=== PATIENT | female | born 1960 | race Caucasian/White ===

== ENCOUNTER → 2016-10-03 | Outpatient (CLI) | payer OTHER ==
[~2016-10-03] MED LIST: ACET-1256 PO; BENZ100C84 PO; CHOL1TAB42 PO; DIVA500T59 PO; DPKSR500; FLVHFAUNK; IBUP-1050 PO; LEVA45AE INH; PANT40TA PO; SCOP1DIS14 TD
--- NOTE | 2016-10-06 13:32 | MAMMOGRAPHY REPORT ---
BILATERAL DIGITAL SCREENING MAMMOGRAM TOMOSYNTHESIS WITH CAD: 10/03/2016 CLINICAL HISTORY: Routine screening. Patient has no complaints. TECHNIQUE: Breast tomosynthesis in addition to standard 2D mammography was performed. Current study was also evaluated with a Computer Aided Detection (CAD) system. COMPARISON: Comparison is made to exams dated: 10/02/2015 mammogram, 01/13/2013 mammogram, 12/23/2011 m ammogram, 10/28/2010 mammogram, 10/18/2009 mammogram - [facility], and 10/02/2008. BREAST COMPOSITION: There are scattered areas of fibroglandular density in both breasts. FINDINGS: No suspicious masses, calcifications, or areas of architectural distortion are noted in e ither breast. There has been no significant interval change compared to prior exams. IMPRESSION: ACR BI-RADS CATEGORY 1: NEGATIVE There is no mammographic evidence of malignancy. A 1 year screening mammogram is recommended. The p atient will receive written notification of the results. Approximately 10% of breast cancers are not detected with mammography. A negative mammographic repor t should not delay biopsy if a clinically suggestive mass is present. Betsy Wallace M.D. /:10/03/2016 15:52:37 Pulp Roller: Katelyn Sheffield [facility] letter sent: Normal 1/2 BI-RADS Code: ACR BI-RADS Category 1: Negative
== END | disposition home or self-care (01) ==
LOC: C.MAMM 15:08
PROVIDERS: ATTEND Family Medicine
DX: Z12.31 Encounter for screening mammogram for malignant neoplasm of breast (principal)

== ENCOUNTER 2017-06-26 09:22 | Inpatient (IN) | payer OTHER ==
[2017-06-02 14:46] VITALS: BMI 47.0
--- NOTE | 2017-06-02 15:20 | PAT Medication Instructions ---
Service Date Jun 02, 2017. Current Home Medication List Benzonatate (Tessalon Perles), 100 MG PO DAILY PRN for Cough Cholecalciferol (Vitamin D), 1 TAB PO QAM Divalproex Sodium (Depakote), 1 TAB PO TID Levalbuterol Tartrate (Levalbuterol Tartrate Hfa), 1 PUFF INH DAILY PRN for Shortness of Breath Pantoprazole (Protonix), 40 MG PO DAILY PRN for STOMACH Scopolamine (Transderm-Scop), 3 MG TD Q72H PRN for TRAVEL Medication Instructions For Your Scheduled Surgery Scopolamine (Transderm-Scop), 3 MG TD Q72H PRN for TRAVEL (continue as directed) - Hold the following medications the morning of surgery: Benzonatate (Tessalon Perles), 100 MG PO DAILY PRN for Cough Cholecalciferol (Vitamin D), 1 TAB PO QAM - Take the following medications the morning of surgery with a sip of water: Pantoprazole (Protonix), 40 MG PO DAILY PRN for STOMACH Levalbuterol Tartrate (Levalbuterol Tartrate Hfa), 1 PUFF INH DAILY PRN for Shortness of Breath (if needed) Divalproex Sodium (Depakote), 1 TAB PO TID - Take the following medications as scheduled the night before surgery: Pantoprazole (Protonix), 40 MG PO DAILY PRN for STOMACH (if needed) Levalbuterol Tartrate (Levalbuterol Tartrate Hfa), 1 PUFF INH DAILY PRN for Shortness of Breath (if needed) Divalproex Sodium (Depakote), 1 TAB PO TID Benzonatate (Tessalon Perles), 100 MG PO DAILY PRN for Cough (if needed) If you have any questions please call us at [phone] or [phone] or [phone]
[2017-06-02 15:25] LABS: URINE APPEARANCE CLEAR (CLEAR); URINE BILIRUBIN NEG (NEG); URINE COLOR DK YELLOW; URINE NITRITE NEG (NEG); URINE PH 5.5 (4.5-7.5); URINE SPECIFIC GRAVITY 1.027 (1.000-1.030); UROBILINOGEN NEG (NEG)
[2017-06-02 15:33] LABS: PROTHROMBIN TIME (PATIENT) 10.7 SECONDS (9.0-12.0)
[2017-06-02 15:39] LABS: MANUAL MICROSCOPIC REQUIRED? NO; REVIEW REQ? NO
--- NOTE | 2017-06-25 18:39 | HISTORY & PHYSICAL EXAMINATION ---
DATE OF ADMISSION: 06/26/2017 CHIEF COMPLAINT: Primary osteoarthritis of the right knee. HISTORY OF PRESENT ILLNESS: Keira is a pleasant 57-year-old female who has been complaining of chronic right knee pain. X-rays and clinical examination have been diagnostic for primary osteoarthritis of the right knee. After failing extensive conservative treatment including multiple injections and physical therapy, she elected to proceed with a right total knee arthroplasty. 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 By the end of the day, she has severe medial sided knee pain. She understands the risks, benefits, and alternatives to knee replacement and she elected to proceed. PAST MEDICAL HISTORY: Significant for mitral valve prolapse, history of seizures which is controlled and GERD. MEDICATIONS: Include Tessalon Perles 100 mg as needed, vitamin D 5000 units daily, Depakote 500 mg 3 times a day, levalbuterol 1 puff daily as needed, Protonix 40 mg daily as needed, and scopolamine patches every 72 hours as needed. PAST SURGICAL HISTORY: Significant for a right knee arthroscopy, left shoulder arthroscopy, right shoulder arthroscopy x3 and a left ankle dislocation. ALLERGIES: INCLUDE ALBUTEROL, SYNTHROID, MORPHINE, PSEUDOEPHEDRINE AND TRIPROLIDINE. SOCIAL HISTORY: Denies any tobacco, alcohol or IV drug use. REVIEW OF SYSTEMS: Complains of right knee pain. All other pertinent review of systems are negative. PHYSICAL EXAMINATION: GENERAL: She is awake, alert and oriented x3. She is in no apparent distress. She is very pleasant. HEENT: Pupils are equal, round and reactive to light. Extraocular motion intact. Oral mucosa is pink and moist. HEART: Regular rate per radial pulse. LUNGS: Kaylie symmetrically bilaterally with no audible breath sounds. ABDOMEN: Soft, nontender, and nondistended. MUSCULOSKELETAL: On physical examination of the right knee, she does have a slight varus deformity. She is able to ambulate independently. She does not have a limp. There is no swelling or effusion of her knee. She has good motion from 0-125 degrees, but she does have crepitus throughout. She has tenderness to palpation along the medial joint line and over the distal medial femoral condyle. IMAGING DATA: X-rays of the right knee do show advanced osteoarthritis with joint space narrowing and osteophyte formation, mostly involving the medial compartment. IMPRESSION: Medial compartmental arthritis of the right knee. PLAN: I will proceed with a Biomet Vanguard right total knee arthroplasty. Postoperatively, she will be started on aspirin for DVT prophylaxis and kept in the hospital for postoperative medical management. BART
[~2017-06-26] VITALS: Ht 182.9 cm; Wt 157.4 kg
[2017-06-26] VITALS (9 sets, daily range): BP systolic 100–126; BP diastolic 68–77; PULSE 67–91; TEMP 36.4–36.7; O2SAT 94–99; Ht 182.9 cm; Wt 157.4 kg
[2017-06-26] MEDS: TRANEXAMIC ACID INJ 1,000 MG in SODIUM CHLORIDE 0.9% 100ML 100 ML IV SCH ×2 (06:30→10:55)
--- NOTE | 2017-06-26 06:50 | History & Physical Bridge Note ---
H&P Re-Evaluation Bridge Note: I have examined the patient, reviewed the History & Physical and in the interval since the performance of the History & Physical I have noted the following changes of clinical significance: No changes noted
[~2017-06-26 09:22] MED LIST changes: -ACET-1256 PO; +ACETAMINOPHEN 500 MG TAB PO SCH; +BUPIVACAINE 0.25% 30 ML VIAL ONE; +BUPIVACAINE 0.5 % 5 MG/1 ML PF 10ML VIAL ONE; +CEFAZOLIN 3000MG IV PUSH 15 ML IV SCH; +DEXAMETHASONE SOD INJ 4 MG/ML VIAL ONE; -DPKSR500; +EpINEphrine INJ 1MG/ML AMP 1 MG/ML AMP ONE; +FAMOTIDINE 20 MG TAB PO SCH; -FLVHFAUNK; +GABAPENTIN 300 MG CAP PO SCH; -IBUP-1050 PO; +LACTATED RINGER'S 1000ML 1,000 ML IV SCH; +LACTATED RINGER'S 1000ML 500 ML IV ONE; +ROPIVACAINE 5MG/ML 30 ML 150 MG, BUPIVACAINE/EPINEPHR 0.5% MPF 30 ML, KETOROLAC TROMETH... INFIL SCH; +SCOP1.5D2 TD; -SCOP1DIS14 TD
[2017-06-26 10:23] LABS: PREG INTERNAL NEGATIVE QC NEG CLEAR BACKGROUND; PREG INTERNAL POSITIVE QC POS CONTROL LINE
[2017-06-26] MEDS ORDERED: ORTHO JOINT ANESTHETIC ONE (10:25)
[2017-06-26] MEDS ORDERED: BACITRACIN 50000 UNIT VIAL ONE (10:26)
[2017-06-26] MEDS ORDERED: MIDAZOLAM HCL 1 MG/ML 2ML VIAL ONE ×2 (10:30→11:42)
[2017-06-26] MEDS ORDERED: FENTANYL CITRATE INJ 50 MCG/1 ML 2 ML VIAL ONE (10:30)
[2017-06-26] MEDS ORDERED: PROPOFOL IV EMULSION 10 MG/ML 20 ML VIAL IV ONE (10:30)
[2017-06-26] MEDS ORDERED: PROMETHAZINE HCL INJ 6.25 MG in SODIUM CHLORIDE 0.9% 50ML 50 ML IV PRN (12:15)
[2017-06-26] MEDS ORDERED: ATROPINE SULFATE 0.1 MG/ML 5ML SYR IV PRN (12:15)
[2017-06-26] MEDS ORDERED: EpHEDrine SULFATE INJ 50 MG/ML AMP IV PRN (12:15)
[2017-06-26] MEDS ORDERED: FENTANYL CITRATE INJ 50 MCG/1 ML 2 ML VIAL IV PRN (12:15)
[2017-06-26] MEDS ORDERED: ONDANSETRON INJ 2 MG/ML 2 ML VIAL IV PRN ×2 (12:15→13:30)
--- NOTE | 2017-06-26 13:24 | [facility] Post Operative Brief Note ---
Immediate Operative Summary Operative Date Jun 26, 2017. Pre-Operative Diagnosis Medial compartmental arthritis of right knee Post-Operative Diagnosis Medial compartmental arthritis of right knee Procedure(s) Performed Right Total Knee Arthroplasty Surgeon Dr. Campos Senior Administrator Support Surgeon(s) DEXTER Bell Estimated Blood Loss 20ml Findings as above Specimens A) Right knee- bone & tissue Complication(s) None Disposition Recovery Room / PACU
[2017-06-26] MEDS ORDERED: BISACODYL 10 MG SUPP PR PRN (13:30)
[2017-06-26] MEDS ORDERED: HYDROmorphone INJ 1 MG/ML SYR IV PRN (13:30)
[2017-06-26] MEDS ORDERED: METOCLOPRAMIDE HCL INJ 5 MG/ML 2 ML VIAL IV PRN (13:30)
[2017-06-26] MEDS: KETOROLAC TROMETHAMINE 30 MG/ML VIAL IV. SCH ×3 (13:30→23:57)
[2017-06-26] MEDS ORDERED: SOD PHOSPHATE/SOD BIPHOSPHATE ENEMA 132 ML BTL PR PRN (13:30)
[2017-06-26] MEDS ORDERED: LEValbuterol HFA 15GM INHALER INH PRN (13:30)
[2017-06-26] MEDS ORDERED: MAGNESIUM HYDROXIDE SUSP 30 ML UDC PO PRN (13:30)
[2017-06-26] MEDS ORDERED: CEFAZOLIN IV 3,000 MG in DEXTROSE 5% 50ML 50 ML IV SCH (13:30)
[2017-06-26] MEDS ORDERED: SILVER SULFADIAZINE 1% CR 50 GM JAR EXT PRN (13:30)
--- NOTE | 2017-06-26 14:12 | Anesthesiology Progress Note ---
Anesthesia Post Op Note Date & Time Jun 26, 2017 at 14:12 Vital Signs Pain Intensity: 0 Vital Signs Past 12 Hours Date Time Temp Pulse Resp B/P (MAP) Pulse Ox O2 Delivery O2 Flow Rate FiO2 06/26/17 14:05 74 19 112/67 97 Nasal Cannula 2 06/26/17 13:55 68 17 106/67 96 Nasal Cannula 2 06/26/17 13:49 36.4 81 20 106/62 97 Nasal Cannula 2 06/26/17 10:06 36.7 78 20 126/74 97 Room Air Notes Mental Status: alert / awake / arousable, participated in evaluation Pt Amnestic to Procedure: Yes Nausea / Vomiting: adequately controlled Pain: adequately controlled Airway Patency, RR, SpO2: stable & adequate BP & HR: stable & adequate Hydration State: stable & adequate Neuraxial Anesthesia: was administered, sensory block is resolving Anesthetic Complications: no major complications apparent
--- NOTE | 2017-06-26 14:33 | DIAGNOSTIC IMAGING REPORT ---
R KNEE 1 OR 2 VIEWS ROUTINE CLINICAL HISTORY: Osteoarthritis. Postop study COMPARISON: None. DISCUSSION: There are postsurgical changes of a total right knee arthroplasty and patellar resurfacing. Overlying skin jelani are evident. There is air in the soft tissues consistent with recent surgery. There is an overlying surgical drain. Femoral tibial components appear well seated. IMPRESSION: Postsurgical changes of a total right knee arthroplasty. Electronically signed by: Jose Perez M.D. 06/26/2017 2:32 PM Dictated Date/Time: 06/26/2017 2:31 PM
[2017-06-26] MEDS: SODIUM CHLORIDE 0.9% 1000ML 1,000 ML IV SCH ×2 (16:49→23:57)
[2017-06-26] MEDS: OXYCODONE HCL IR 5 MG TAB (IMMEDIATE RELEASE) PO PRN (16:49)
[2017-06-26] MEDS: DIVALPROEX SODIUM 500 MG DELAY RELEASE TAB PO SCH ×2 (18:11→21:57)
[2017-06-26] MEDS: CEFAZOLIN IV 3,000 MG in SYRINGE 0 ML IV SCH (20:05)
[2017-06-26] MEDS: DOCUSATE SODIUM 100 MG CAP PO SCH (21:57)
[2017-06-26] MEDS: ACETAMINOPHEN 500 MG TAB PO SCH (21:58)
[2017-06-26] MEDS: SENNA 8.6 MG TAB PO SCH (21:58)
[2017-06-26] MEDS: ASPIRIN 325 MG ECTAB PO SCH (21:58)
[2017-06-27] VITALS (7 sets, daily range): BP systolic 95–143; BP diastolic 64–85; PULSE 68–87; TEMP 36.4–36.9; O2SAT 93–99
[2017-06-27] MEDS: CEFAZOLIN IV 3,000 MG in SYRINGE 0 ML IV SCH (04:48)
[2017-06-27] MEDS: OXYCODONE HCL IR 5 MG TAB (IMMEDIATE RELEASE) PO PRN ×2 (04:49→17:31)
[2017-06-27] MEDS: ACETAMINOPHEN 500 MG TAB PO SCH ×3 (05:54→22:01)
[2017-06-27 06:06] LABS: HEMATOCRIT 33.9 % (37-47); MEAN CELL VOLUME 86.5 fL (80-100); MEAN CORPUSCULAR HEMOGLOBIN 27.3 pg (25-34); MEAN CORPUSCULAR HGB CONC 31.6 g/dl (32-36); MEAN PLATELET VOLUME 10.3 fL (7.4-10.4); PLATELET COUNT 193 K/uL (130-400); RED BLOOD COUNT 3.92 M/uL (4.2-5.4)
[2017-06-27 06:50] LABS: BUN/CREATININE RATIO 28.2 (10-20); CALCIUM 8.5 mg/dl (8.5-10.1); CREATININE 0.66 mg/dl (0.60-1.20); POTASSIUM 4.3 mmol/L (3.5-5.1)
--- NOTE | 2017-06-27 07:35 | Discharge Instructions ---
Discharge Instructions Date of Service Jun 27, 2017. Admission Reason for Admission: Osteoarthritis Of Knee Discharge Discharge Diagnosis / Problem: Right Total Knee Discharge Goals Goal(s): Decrease discomfort, Improve function Activity Recommendations Activity Limitations: as noted below . Instructions / Follow-Up Instructions / Follow-Up Activity and Therapy Recommendations: * If you are using [facility] then Physical Therapy will be provided until they feel you are ready to start Outpatient Physical Therapy. If you are not using a Home Health agency then Outpatient Physical Therapy should start about 3-5 days from your day of surgery. Therapy will last about 6-10 weeks * It is important not to put a pillow under your knee when you are relaxing or sleeping. It is just as important to make sure you are getting your knee perfectly straight as it is to regain your knee bend. * You were shown a series of exercises in the hospital. Do these exercises three times each day including the exercises you were shown in physical therapy. * Get up and walk several times each day. For the first four weeks, try not to stand or walk for more than one hour at a time. If you do stand or walk for more than one hour, you will not hurt anything, but your leg will likely swell. * As you feel comfortable, you may change from the walker or crutches to a cane and then to independent walking. Medications: * Narcotic You will likely be sent home from the hospital with a prescription for the narcotic pain medication that worked best throughout your stay. * Aspirin Most patients will be required to take Aspirin 325mg twice a day for 6 weeks after surgery. This is obtained [id number] and a prescription is not necessary. * Other medications may be prescribed for specific circumstances. If you have any questions, please call the office at . * Resume previous home medications unless otherwise instructed TEDs/Elastic Stockings: The white elastic stockings help limit swelling and prevent blood clots from forming in your legs.~ The more you wear them, the more they work. Wear them for six weeks. Showering: You may shower 5 days from the day of surgery. Let the soapy shower water run over the jelani. Do not scrub or soak the incision. Things To Watch For: * Drainage from the incision site that occurs more than one week after your surgery. * Increased redness at the incision site. * Fever above 102 degrees Fahrenheit. * Unusual chest pain or shortness of breath. * Call [facility] at with any of the above problems Follow-Up Visit: Follow-up with Dr. Campos 2-3 weeks after your day of surgery. An appointment was probably scheduled when you signed-up for surgery in the office. If you have any questions call Office Instructions: More detailed instructions as well as Frequently Asked Questions were provided in a folder by our office when you signed-up for surgery. Please review these instructions when you get home. If you have any further questions or concerns, please feel free to call the office at [phone] Current Hospital Diet Patient's current hospital diet: Regular Diet Discharge Diet Recommended Diet: Regular Diet Procedures Procedures Performed: Right Total Knee Arthroplasty Pending Studies Studies pending at discharge: no Medical Emergencies . Who to Call and When: Medical Emergencies: If at any time you feel your situation is an emergency, please call [phone] immediately. . Non-Emergent Contact Non-Emergency issues call your: Surgeon Call Non-Emergent contact if: wound has increased drainage, wound has increased redness . "Provider Documentation" section prepared by Noman Campos. . VTE Core Measure Inpt VTE Proph given/why not?: Other Anticoagulation (Aspirin 325 twice a day for 6 weeks)
--- NOTE | 2017-06-27 07:49 | OPERATIVE REPORT ---
DATE OF OPERATION: 06/26/2017 PREOPERATIVE DIAGNOSIS: Primary osteoarthritis of the right knee. PROCEDURE: Right total knee arthroplasty. SURGEON: Noman Campos DO. CRANE RIGGER: Eitan Antonio PA-C, whose assistance was necessary for positioning of the leg and helping with retraction of instrumentation. ANESTHESIA: Spinal with a right adductor nerve block. COMPLICATIONS: None. CONDITION: Stable to PACU. INDICATIONS: Keira is a pleasant 57-year-old female who presented to my office with chronic right knee pain. I did a knee arthroscopy on her in the past and it showed significant arthritis. X-rays showed worsening arthritis in the office and after failing years of conservative treatment, she elected to proceed with a right total knee arthroplasty. OPERATION AND FINDINGS: On 06/26/2017, she arrived at [facility] for the above procedure. She was seen in the preoperative holding area and the operative extremity was identified and signed. She was given a preoperative antibiotic, a spinal anesthetic and a right adductor nerve block. She was taken back to the operating room, laid on the table in supine position and put under basic sedation. The right knee was then prepped and draped in sterile fashion. Time-out was done and the patient and operative extremity was properly identified. A midline incision was made directly over the patella. Dissection was taken down through the fascia and a medial parapatellar arthrotomy was used. The fat pad was left intact. The medial retinaculum was released and the knee was flexed. ACL, PCL and meniscus were removed. A drill was sent down the center of the femoral canal, followed by an intramedullary bang. Off that bang, a distal femoral cutting block was placed and 12 mm was resected off the distal femur at 5 degrees of valgus. A posterior referencing guide was used and the femur measured long term between a 75 and an 80. I decided to go with the smaller 75 femur. Two drill holes were placed in 3 degrees of external rotation and a 4-in-1 cutting block was impacted into place. Anterior, posterior and chamfer cuts were then made. Box guide was then impacted into place and the box was resected for the posterior stabilizing component. The proximal tibia was then exposed. A drill was sent down the center of the tibial canal followed by an intramedullary bang. Off that bang, a proximal tibial resection guide was placed and 2 mm was resected off the low medial side. The tibia measured to be a size 79. The tibial plate was placed in appropriate rotation and then it was punched. Trial components were placed as well was a size 10 PS Plus poly. The patella was then everted and 8 mm was resected off the posterior aspect of the patella. The patella measured to be a size 31 and 3 peg holes were drilled. A trial patella was used. The knee was brought through a full range of motion and felt to be stable. All trial components were then removed. The surrounding soft tissues were injected with 100 mL of orthopedic pain control cocktail. The final implants were cemented into place with Palacos-G cement. Once cement had hardened, a size 10 PS Plus poly seemed to be the best fit. I went with a PS Plus because of her size and weight. The knee was brought through a full range of motion and felt to be stable. The knee was then irrigated with 3 liters of normal saline solution with bacitracin. Two drains were placed. The extensor mechanism was closed with #2 FiberWire suture in the superior medial aspect as well as #1 Vicryl, both proximally and distally. The skin was closed with 2-0 Vicryl, 3-0 V-Loc suture and jelani. She was then placed in a soft compressive dressing and taken to the postanesthesia care unit in stable condition. She tolerated the procedure well. IMPLANTS USED: I used a Biomet Vanguard right total knee arthroplasty system with a size 75 femur, 79 tibia, a 31 x 8 patella and a size 10 PS Plus poly. I attest to the content of the Intraoperative Record and any orders documented therein. Any exception s are noted below.
--- NOTE | 2017-06-27 08:03 | PROGRESS NOTE ---
DATE: 06/27/2017 CHIEF COMPLAINT: Status post right total knee arthroplasty postop day #1. PROGRESS: Keira was seen and examined at bedside today. Overall, she is doing very well. She is not having much pain in the knee. She feels good. She has been up and ambulating on it. She was able to get some sleep last night, has no complaints. PHYSICAL EXAMINATION: VITAL SIGNS: All stable on room air and she is voiding on her own. RIGHT KNEE: The dressing is clean and dry and the drain is to suction. Her knee is out in full extension. She has active dorsiflexion and plantarflexion of her right ankle and sensation is intact throughout. LABORATORY DATA: She has an H&H today of 10.7 and 33.9. Her glucose is 137. X-rays postoperatively of the left knee showed the prosthesis to be in anatomical alignment without any evidence of fracture, dislocation or loosening. There is a little notching of the distal femur. IMPRESSION: Status post left total knee arthroplasty postop day #1. PLAN: At this point, she is doing well and happy with her progress. She did not have any pain in the knee. She can be up and ambulating today with physical therapy. Will continue aspirin 325 mg twice a day for DVT prophylaxis. We are expecting her to be discharged tomorrow with [facility] home health.
[2017-06-27] MEDS: SODIUM CHLORIDE 0.9% 1000ML 1,000 ML IV SCH ×2 (08:51→09:37)
[2017-06-27] MEDS: KETOROLAC TROMETHAMINE 30 MG/ML VIAL IV. SCH ×4 (08:53→19:23)
[2017-06-27] MEDS: DOCUSATE SODIUM 100 MG CAP PO SCH ×2 (08:54→21:59)
[2017-06-27] MEDS: MULTIVITAMIN TAB PO SCH (08:54)
[2017-06-27] MEDS: CHOLECALCIFEROL 1000 INTER.UNIT TAB PO SCH (08:54)
[2017-06-27] MEDS: DIVALPROEX SODIUM 500 MG DELAY RELEASE TAB PO SCH ×3 (08:55→21:59)
[2017-06-27] MEDS: PANTOprazole SOD 40 MG TAB PO SCH (08:55)
[2017-06-27] MEDS: ASPIRIN 325 MG ECTAB PO SCH ×2 (08:55→21:58)
[2017-06-27] MEDS: SENNA 8.6 MG TAB PO SCH (21:59)
[2017-06-28] MEDS: OXYCODONE HCL IR 5 MG TAB (IMMEDIATE RELEASE) PO PRN (00:03)
[2017-06-28] MEDS: KETOROLAC TROMETHAMINE 30 MG/ML VIAL IV. SCH ×2 (01:52→07:08)
[2017-06-28] MEDS: ACETAMINOPHEN 500 MG TAB PO SCH (05:39)
[2017-06-28 07:29] VITALS: BP 103/69; PULSE 65; TEMP 36.4; O2SAT 94
[2017-06-28 07:37] VITALS: BP 103/69; PULSE 65; TEMP 36.4; O2SAT 94
[2017-06-28] MEDS: DIVALPROEX SODIUM 500 MG DELAY RELEASE TAB PO SCH (08:50)
[2017-06-28] MEDS: MULTIVITAMIN TAB PO SCH (08:50)
[2017-06-28] MEDS: PANTOprazole SOD 40 MG TAB PO SCH (08:50)
[2017-06-28] MEDS: DOCUSATE SODIUM 100 MG CAP PO SCH (08:50)
[2017-06-28] MEDS: ASPIRIN 325 MG ECTAB PO SCH (08:50)
[2017-06-28] MEDS: CHOLECALCIFEROL 1000 INTER.UNIT TAB PO SCH (08:51)
[2017-06-28] MEDS ORDERED: RXC5 PO (09:43)
[2017-06-28] MEDS ORDERED: ASPEC325 PO (09:43)
--- NOTE | 2017-06-28 09:53 | PROGRESS NOTE ---
DATE: 06/28/2017 CHIEF COMPLAINT: Status post right total knee arthroplasty, postop day #2. PROGRESS: Keira was seen and examined at bedside today. Overall, she is doing very well. She worked well yesterday with physical therapy. Her pain is controlled. She has no complaints. PHYSICAL EXAMINATION: RIGHT LEG: The dressing has been changed and the drain has been pulled. She is lying with her leg in full extension. She has active dorsiflexion and plantarflexion of her right ankle. Sensation is intact throughout. IMPRESSION: Status post right total knee arthroplasty, postop day #2. PLAN: At this point, she is doing well and happy with her progress. She has been doing well with physical therapy. Her pain is controlled on oxycodone. We will discharge her to home later this morning.
[2017-06-28 11:10] VITALS: BP 107/72; PULSE 75; O2SAT 96
--- NOTE | 2017-06-28 22:17 | DISCHARGE SUMMARY ---
DISCHARGE DIAGNOSIS: Primary osteoarthritis of the right knee. PROCEDURE: Right total knee arthroplasty on 06/26/[address] Noman Campos. DISCHARGE INSTRUCTIONS: 1. Aspirin 325 mg twice a day for 6 weeks. 2. Oxycodone 5-10 mg every 4 hours as needed for pain. 3. Tessalon Perles 100 mg daily as needed. 4. Vitamin D 5000 units daily. 5. Depakote 1 tab 3 times a day. 6. Levalbuterol 1 puff as needed. 7. Protonix 40 mg daily. 8. Scopolamine patch as needed. 9. Follow up with Dr. Campos in 2 weeks. 10. Call the office of Dr. Campos with any questions or concerns. HOSPITAL COURSE: Keira is a pleasant 57-year-old female who presented to my office with chronic right knee pain. X-rays and clinical examination were diagnostic for progressing advanced osteoarthritis of the right knee. After failing extensive conservative treatment, she elected to proceed with a right total knee arthroplasty. On 06/26/2017, she arrived at [facility] and underwent a right knee replacement without complications. She had a spinal anesthetic and a right adductor nerve block. Postoperatively, she was started on aspirin 325 mg twice a day and discharged to general orthopedic floor. Her hospital course was uneventful. On postop day #1, her H&H was 10.7 and 33.9. Overall, her pain was controlled and she was ambulating well with physical therapy. On postop day #2, the dressing was changed, the drain was pulled. She worked well again with physical therapy and was subsequently discharged to home with the above instructions.
== END 2017-06-28 11:56 | disposition home or self-care (01) | DRG 470 ==
LOC: C.ACU 09:22 → C.3E 10:30 → ENRESERV 14:09
PROVIDERS: ADMIT Orthopaedic Surgery; ATTEND Orthopaedic Surgery
PROC: 0SRC0J9 Replacement of Right Knee Joint with Synthetic Substitute, Cemented, Open Approach (ICD-10-PCS; principal; 2017-06-26 11:15)
DX: M17.11 Unilateral primary osteoarthritis, right knee (principal); I34.1 Nonrheumatic mitral (valve) prolapse; K21.9 Gastro-esophageal reflux disease without esophagitis; R56.9 Unspecified convulsions

== ENCOUNTER → 2017-10-05 | Outpatient (CLI) | payer OTHER ==
[~2017-10-05] MED LIST changes: -ACETAMINOPHEN 500 MG TAB PO SCH; +ASPEC325 PO; -BUPIVACAINE 0.25% 30 ML VIAL ONE; -BUPIVACAINE 0.5 % 5 MG/1 ML PF 10ML VIAL ONE; -CEFAZOLIN 3000MG IV PUSH 15 ML IV SCH; -DEXAMETHASONE SOD INJ 4 MG/ML VIAL ONE; -EpINEphrine INJ 1MG/ML AMP 1 MG/ML AMP ONE; -FAMOTIDINE 20 MG TAB PO SCH; -GABAPENTIN 300 MG CAP PO SCH; -LACTATED RINGER'S 1000ML 1,000 ML IV SCH; -LACTATED RINGER'S 1000ML 500 ML IV ONE; -ROPIVACAINE 5MG/ML 30 ML 150 MG, BUPIVACAINE/EPINEPHR 0.5% MPF 30 ML, KETOROLAC TROMETH... INFIL SCH; +RXC5 PO
--- NOTE | 2017-10-06 13:29 | MAMMOGRAPHY REPORT ---
BILATERAL DIGITAL SCREENING MAMMOGRAM TOMOSYNTHESIS WITH CAD: 10/05/2017 CLINICAL HISTORY: Routine screening examination. TECHNIQUE: Breast tomosynthesis in addition to standard 2D mammography was performed. Current study was also evaluated with a Computer Aided Detection (CAD) system. COMPARISON: Comparison is made to exams dated: 10/03/2016 mammogram, 10/02/2015 mammogram, 12/23/2011 [facility] mogram, 10/28/2010 mammogram, 10/18/2009 mammogram - [facility], and 10/02/2008. BREAST COMPOSITION: There are scattered areas of fibroglandular density in both breasts. FINDINGS: The parenchymal pattern is unchanged. No developing mass, architectural distortion or clus ter of suspicious microcalcifications is seen in either breast. IMPRESSION: ACR BI-RADS CATEGORY 2: BENIGN There is no mammographic evidence of malignancy. A 1 year screening mammogram is recommended. The pa tient will receive written notification of the results. Approximately 10% of breast cancers are not detected with mammography. A negative mammographic report should not delay biopsy if a clinically suggestive mass is present. Rolanda Robles M.D. ay/:10/05/2017 16:01:21 Electronic Console Display Operator: Katelyn HADDAD(Kam)(Elan), [facility] letter sent: Normal 1/2 BI-RADS Code: ACR BI-RADS Category 2: Benign
== END | disposition home or self-care (01) ==
LOC: C.MAMM 15:19
PROVIDERS: ATTEND Family Medicine
DX: Z12.31 Encounter for screening mammogram for malignant neoplasm of breast (principal)

== ENCOUNTER 2018-09-17 09:53 | Inpatient (IN) | END 2018-09-20 14:15 | disposition home or self-care (01) | LOC: ED 09:53 → 2S 13:43 ==

== ENCOUNTER 2018-09-24 16:42 | Inpatient (IN) ==
[2018-09-24] MEDS ORDERED: dilTIAZem HCl 125 MG in DEXTROSE 5% 100 ML IV STA (18:03)
[2018-09-24] MEDS ORDERED: dilTIAZem HCl 5 MG/ML 5 ML VIAL IV STA (18:03)
[2018-09-24] MEDS ORDERED: SODIUM CHLORIDE 0.9% 500 ML IV SCH (18:15)
[2018-09-24 18:16] LABS: Basophils # (auto) 0.01 K/uL (0-0.2); Basophils % (auto) 0.1 %; Eosinophils # (auto) 0.05 K/uL (0-0.5); Eosinophils % (auto) 0.7 %; Hemoglobin 15.9 g/dL (12.0-16.0); Immature Granulocytes # (auto) 0.01 K/uL (0.00-0.02); Immature Granulocytes % (auto) 0.1 %; Lymphocytes # (auto) 2.96 K/uL (1.2-3.4); Lymphocytes % (auto) 43.5 %; Mean Corpuscular Hgb Conc 32.4 g/dL (32-36); Mean Corpuscular Volume 87.5 fL (80-100); Mean Platelet Volume 11.6 fL (7.4-10.4); Monocytes % (auto) 10.3 %; Neutrophils # (auto) 3.07 K/uL (1.4-6.5); Neutrophils % (auto) 45.3 %; Platelet Count 206 K/uL (130-400); RDW Coefficient of Variation 14.5 % (11.5-14.5); RDW Standard Deviation 46.5 fL (36.4-46.3)
[2018-09-24 18:25] LABS: INR 1.1 (0.9-1.1); Partial Thromboplastin Ratio 1.1; Partial Thromboplastin Time 28.4 Seconds (21.0-31.0); Prothrombin Time 11.4 Seconds (9.0-12.0)
[2018-09-24 18:43] LABS: Alanine Aminotransferase 30 U/L (12-78); Aspartate Aminotransferase 15 U/L (15-37); BUN Creatinine Ratio 23.6 (10-20); Blood Urea Nitrogen 19 mg/dl (7-18); Calcium 9.9 mg/dl (8.5-10.1); Carbon Dioxide 32 mmol/L (21-32); Chloride 104 mmol/L (98-107); Creatinine Clr Calc Pharmacy 117.6 ml/min; Est GFR (African American) 91.4; Est GFR (Non-African American) 78.8; Glucose 100 mg/dl (70-99); Magnesium 2.2 mg/dl (1.8-2.4); Potassium 3.6 mmol/L (3.5-5.1); Sodium 138 mmol/L (136-145)
[2018-09-24 18:54] LABS: Alkaline Phosphatase 108 U/L (45-117); Bilirubin,Total 0.4 mg/dl (0.2-1); Globulin 4.1 gm/dl (2.5-4.0); Total Protein 8.1 gm/dl (6.4-8.2); Troponin I < 0.015 ng/ml (0-0.045)
--- NOTE | 2018-09-24 19:03 | XRay Report ---
XR chest 1V portable CLINICAL HISTORY: 58 years-old Female presenting with weakness. TECHNIQUE: Portable upright AP view of the chest was obtained. COMPARISON: 09/21/2018 and CTA from 09/17/2018. FINDINGS: director of healthcare systems projects over the periphery of the left midlung degrading evaluation of this region. C ardiac silhouette mildly enlarged. Lungs and pleural spaces clear. Degenerative changes of the thorac ic spine. IMPRESSION: 1. Mild cardiomegaly. No other convincing evidence of acute cardiopulmonary disease. Electronically signed by: Clint Ferrara M.D. 09/24/2018 7:01 PM
--- NOTE | 2018-09-24 19:38 | Emergency Department Note ---
Entered by Andre Yates acting as a scribe for Miguel Macias MD History of Present Illness General Chief complaint: Arrhythmia/Palpitations Stated complaint: AFIB- CARDIAC HX Time Seen by Provider: 09/24/18 17:59 Source: patient History of Present Illness Onset (ago): hour(s) (prior to arrival) Location: chest (palpitations) Pain Consistency: + other (worsening) Maximum Pain Intensity: 0 Relieved By: + none Associated symptoms: + shortness of breath (exacerbated by the cold weather) and + other (tiredness) The patient is a 58 year old F who presents to the Emergency Room with complaints of worsening palpitations starting prior to arrival. She notes that she was discharged 4 days ago from the hospital with the diagnosis of atrial flutter. She states that she felt fine this morning. The patient states that she went to the gym today to exercise but before she could even start, they placed her on the monitor and her heart rate was about 140. She went to her doctor's office and was then referred her to the ED. She notes that she is currently on metoprolol and eliquis. She states that she is currently short of breath and feels tired. She adds that her shortness of breath is worse due to the cold weather. She notes that she has a history of bronchitis. Of note, she denies any chest pain. Home Medications Home Medications Medication Instructions Recorded Confirmed Type divalproex [Depakote] 500 mg PO TID 09/15/18 09/24/18 History levalbuterol tartrate [Xopenex HFA] 2 puff INHALATION UD PRN 09/15/18 09/24/18 History apixaban [Eliquis] 5 mg PO BID 30 Days #60 tab 09/20/18 09/24/18 Rx metoprolol tartrate 25 mg PO BID 30 Days #60 tab 09/20/18 09/24/18 Rx pantoprazole 40 mg PO QAM PRN 09/24/18 09/24/18 History Allergies Allergy/AdvReac Type Severity Reaction Status Date / Time pseudoephedrine Allergy Mild HYPERVENTIL Verified 09/17/18 11:24 ATE triprolidine Allergy Mild HYPERVENTIL Verified 09/17/18 11:24 ATE levofloxacin Allergy Unknown SWELLING, Verified 09/17/18 11:24 JOINT PAIN oxycodone Allergy Unknown HAD Verified 09/17/18 11:24 "WITHDRAWL" WHEN STOPPED adhesive AdvReac Mild Redness of Verified 09/20/18 06:57 Skin - Bandaids adhesive tape AdvReac Mild Redness of Verified 09/20/18 06:58 Skin albuterol AdvReac Unknown JITTER, Verified 09/17/18 11:24 RAPID HEART RATE morphine AdvReac Unknown SEE NOTES Verified 09/17/18 11:24 Past Med/Surg History Medical History Bronchitis (Chronic) Atrial flutter (Chronic) NEW ONSET- 08/2018; STARTED ON ELIQUIS/BETA CARON Acid reflux CONTROLLED Arthritis Asthma Diverticulitis REMOTE History of kidney stones History of seizures LAST SEIZURE 10+ YEARS AGO Morbid obesity Surgical History History of ankle surgery LEFT History of arthroscopy of left shoulder History of arthroscopy of right knee X3 History of arthroscopy of right shoulder X3 History of colonoscopy History of total knee arthroplasty RIGHT Family History Father Family history of bladder cancer Social History Current Living Situation: Family Current Living Situation Comment: Lives home with 16 y/o son Feels Safe at Home: Yes Safety Concerns: Feels Safe At This Time Smoking Status: Never smoker Hx Alcohol Use: Yes Alcohol type: beer and wine Alcohol Intake Frequency: holidays/special occasions only Hx Substance Use: No Beliefs That Will Affect Care: None Preferred Language: Micronesian Communication Ability: Effective Efficiency Miner Blasting Required: No Review of Systems See HPI for pertinent positives & negatives. and A total of 10 systems reviewed and were otherwise negative Physical Exam Vital Signs Vital Signs - 24 hr 09/24/18 17:40 09/24/18 18:01 09/24/18 18:02 Temperature 36.8 C Temperature Source Oral Sepsis Recent Fever Within 48 Hours No Sepsis New/Unexplained Change in Mental Status No Sepsis Action Taken by Nursing No Action Required Pulse Rate 142 H 137 H Pulse Rate [Left] 137 H Pulse Rhythm [Left] Pulse Strength [Left] Respiratory Rate 16 19 20 Respiratory Effort / Characteristics Non-Labored Spontaneous Respiratory Depth Normal Respiratory Pattern Regular Blood Pressure 142/93 H 137/101 H Blood Pressure [Left Arm] 137/101 H Blood Pressure Mean 109 113 Blood Pressure Mean [Left Arm] 113 Blood Pressure Position Sitting Blood Pressure Position [Left Arm] Pulse Oximetry 97 97 96 Oxygen Delivery Method Room Air Room Air 09/24/18 18:31 09/24/18 18:40 09/24/18 18:48 Temperature Temperature Source Sepsis Recent Fever Within 48 Hours Sepsis New/Unexplained Change in Mental Status Sepsis Action Taken by Nursing Pulse Rate 138 H 139 H Pulse Rate [Left] 132 H Pulse Rhythm [Left] Pulse Strength [Left] Respiratory Rate 20 14 20 Respiratory Effort / Characteristics Non-Labored Spontaneous Respiratory Depth Respiratory Pattern Blood Pressure Blood Pressure [Left Arm] 115/92 Blood Pressure Mean Blood Pressure Mean [Left Arm] 99 Blood Pressure Position Blood Pressure Position [Left Arm] Lying Pulse Oximetry 98 97 96 Oxygen Delivery Method Room Air 09/24/18 18:49 09/24/18 18:50 09/24/18 19:00 Temperature Temperature Source Sepsis Recent Fever Within 48 Hours Sepsis New/Unexplained Change in Mental Status Sepsis Action Taken by Nursing Pulse Rate 138 H 125 H 113 H Pulse Rate [Left] Pulse Rhythm [Left] Pulse Strength [Left] Respiratory Rate 16 15 30 H Respiratory Effort / Characteristics Respiratory Depth Respiratory Pattern Blood Pressure 115/92 Blood Pressure [Left Arm] Blood Pressure Mean 99 Blood Pressure Mean [Left Arm] Blood Pressure Position Blood Pressure Position [Left Arm] Pulse Oximetry 99 96 96 Oxygen Delivery Method 09/24/18 19:01 09/24/18 19:12 09/24/18 19:20 Temperature Temperature Source Sepsis Recent Fever Within 48 Hours Sepsis New/Unexplained Change in Mental Status Sepsis Action Taken by Nursing Pulse Rate 113 H 130 H 113 H Pulse Rate [Left] Pulse Rhythm [Left] Pulse Strength [Left] Respiratory Rate 27 H 21 22 Respiratory Effort / Characteristics Respiratory Depth Respiratory Pattern Blood Pressure 125/80 Blood Pressure [Left Arm] Blood Pressure Mean 95 Blood Pressure Mean [Left Arm] Blood Pressure Position Blood Pressure Position [Left Arm] Pulse Oximetry 96 97 95 Oxygen Delivery Method 09/24/18 19:30 09/24/18 19:31 09/24/18 19:40 Temperature Temperature Source Sepsis Recent Fever Within 48 Hours Sepsis New/Unexplained Change in Mental Status Sepsis Action Taken by Nursing Pulse Rate 125 H 127 H 115 H Pulse Rate [Left] Pulse Rhythm [Left] Pulse Strength [Left] Respiratory Rate 12 23 14 Respiratory Effort / Characteristics Respiratory Depth Respiratory Pattern Blood Pressure 133/81 Blood Pressure [Left Arm] Blood Pressure Mean 98 Blood Pressure Mean [Left Arm] Blood Pressure Position Blood Pressure Position [Left Arm] Pulse Oximetry 97 96 98 Oxygen Delivery Method 09/24/18 19:50 09/24/18 20:00 09/24/18 20:01 Temperature Temperature Source Sepsis Recent Fever Within 48 Hours Sepsis New/Unexplained Change in Mental Status Sepsis Action Taken by Nursing Pulse Rate 112 H 89 93 H Pulse Rate [Left] Pulse Rhythm [Left] Pulse Strength [Left] Respiratory Rate 28 H 16 20 Respiratory Effort / Characteristics Respiratory Depth Respiratory Pattern Blood Pressure 106/80 Blood Pressure [Left Arm] Blood Pressure Mean 88 Blood Pressure Mean [Left Arm] Blood Pressure Position Blood Pressure Position [Left Arm] Pulse Oximetry 95 98 95 Oxygen Delivery Method 09/24/18 20:10 09/24/18 20:20 09/24/18 20:30 Temperature Temperature Source Sepsis Recent Fever Within 48 Hours Sepsis New/Unexplained Change in Mental Status Sepsis Action Taken by Nursing Pulse Rate 105 H 99 H 119 H Pulse Rate [Left] Pulse Rhythm [Left] Pulse Strength [Left] Respiratory Rate 18 22 24 Respiratory Effort / Characteristics Respiratory Depth Respiratory Pattern Blood Pressure Blood Pressure [Left Arm] Blood Pressure Mean Blood Pressure Mean [Left Arm] Blood Pressure Position Blood Pressure Position [Left Arm] Pulse Oximetry 96 97 94 Oxygen Delivery Method 09/24/18 20:31 09/24/18 20:40 09/24/18 20:50 Temperature Temperature Source Sepsis Recent Fever Within 48 Hours Sepsis New/Unexplained Change in Mental Status Sepsis Action Taken by Nursing Pulse Rate 115 H 104 H 107 H Pulse Rate [Left] Pulse Rhythm [Left] Pulse Strength [Left] Respiratory Rate 17 19 20 Respiratory Effort / Characteristics Respiratory Depth Respiratory Pattern Blood Pressure 102/79 Blood Pressure [Left Arm] Blood Pressure Mean 86 Blood Pressure Mean [Left Arm] Blood Pressure Position Blood Pressure Position [Left Arm] Pulse Oximetry 94 95 93 Oxygen Delivery Method 09/24/18 21:00 09/24/18 21:01 09/24/18 21:10 Temperature Temperature Source Sepsis Recent Fever Within 48 Hours Sepsis New/Unexplained Change in Mental Status Sepsis Action Taken by Nursing Pulse Rate 94 H 101 H 104 H Pulse Rate [Left] Pulse Rhythm [Left] Pulse Strength [Left] Respiratory Rate 18 17 20 Respiratory Effort / Characteristics Respiratory Depth Respiratory Pattern Blood Pressure 102/65 Blood Pressure [Left Arm] Blood Pressure Mean 77 Blood Pressure Mean [Left Arm] Blood Pressure Position Blood Pressure Position [Left Arm] Pulse Oximetry 95 92 94 Oxygen Delivery Method 09/24/18 21:20 09/24/18 21:30 09/24/18 21:40 Temperature Temperature Source Sepsis Recent Fever Within 48 Hours Sepsis New/Unexplained Change in Mental Status Sepsis Action Taken by Nursing Pulse Rate 100 H 86 104 H Pulse Rate [Left] Pulse Rhythm [Left] Pulse Strength [Left] Respiratory Rate 26 H 17 25 H Respiratory Effort / Characteristics Respiratory Depth Respiratory Pattern Blood Pressure 121/84 Blood Pressure [Left Arm] Blood Pressure Mean 96 Blood Pressure Mean [Left Arm] Blood Pressure Position Blood Pressure Position [Left Arm] Pulse Oximetry 94 94 96 Oxygen Delivery Method 09/24/18 21:50 09/24/18 22:00 09/24/18 22:01 Temperature Temperature Source Sepsis Recent Fever Within 48 Hours Sepsis New/Unexplained Change in Mental Status Sepsis Action Taken by Nursing Pulse Rate 100 H 100 H 97 H Pulse Rate [Left] Pulse Rhythm [Left] Pulse Strength [Left] Respiratory Rate 23 18 20 Respiratory Effort / Characteristics Respiratory Depth Respiratory Pattern Blood Pressure 113/70 Blood Pressure [Left Arm] Blood Pressure Mean 84 Blood Pressure Mean [Left Arm] Blood Pressure Position Blood Pressure Position [Left Arm] Pulse Oximetry 94 95 92 Oxygen Delivery Method 09/24/18 22:10 09/24/18 22:35 09/24/18 22:46 Temperature 36.5 C Temperature Source Oral Sepsis Recent Fever Within 48 Hours Sepsis New/Unexplained Change in Mental Status Sepsis Action Taken by Nursing Pulse Rate 100 H 78 Pulse Rate [Left] 76 Pulse Rhythm [Left] Regular Pulse Strength [Left] Normal Respiratory Rate 25 H 16 Respiratory Effort / Characteristics Non-Labored Spontaneous Respiratory Depth Normal Respiratory Pattern Regular Blood Pressure Blood Pressure [Left Arm] 106/73 Blood Pressure Mean Blood Pressure Mean [Left Arm] 84 Blood Pressure Position Blood Pressure Position [Left Arm] Lying Pulse Oximetry 94 99 Oxygen Delivery Method Room Air 09/24/18 23:05 09/25/18 00:19 09/25/18 02:40 Temperature 36.4 C L 36.4 C L Temperature Source Oral Oral Sepsis Recent Fever Within 48 Hours Sepsis New/Unexplained Change in Mental Status Sepsis Action Taken by Nursing Pulse Rate Pulse Rate [Left] 71 63 56 L Pulse Rhythm [Left] Pulse Strength [Left] Respiratory Rate 18 16 Respiratory Effort / Characteristics Respiratory Depth Respiratory Pattern Blood Pressure Blood Pressure [Left Arm] 98/66 L 95/61 L Blood Pressure Mean Blood Pressure Mean [Left Arm] 76 72 Blood Pressure Position Blood Pressure Position [Left Arm] Pulse Oximetry 96 97 Oxygen Delivery Method 09/25/18 07:04 Temperature 36.6 C Temperature Source Oral Sepsis Recent Fever Within 48 Hours Sepsis New/Unexplained Change in Mental Status Sepsis Action Taken by Nursing Pulse Rate Pulse Rate [Left] 96 H Pulse Rhythm [Left] Pulse Strength [Left] Respiratory Rate 18 Respiratory Effort / Characteristics Respiratory Depth Respiratory Pattern Blood Pressure Blood Pressure [Left Arm] 92/64 L Blood Pressure Mean Blood Pressure Mean [Left Arm] 73 Blood Pressure Position Blood Pressure Position [Left Arm] Pulse Oximetry 96 Oxygen Delivery Method Room Air GENERAL: Patient is in no acute distress. HEENT: No acute trauma, normocephalic atraumatic, mucous membranes moist, no nasal congestion, no scleral icterus. NECK: No stridor, no adenopathy, no meningismus, trachea is midline. LUNGS: Clear to auscultation bilaterally, no wheeze, no rhonchi, breath sounds equal. HEART: tachycardic, no murmurs, regular rhythm ABDOMEN: Soft, nontender, bowel sounds positive, no hernias, no peritonitis. EXTREMITIES: No cyanosis, mild bilateral pedal edema, full range of motion of all the joints without pain or difficulty, no signs for acute trauma. NEUROLOGIC: Oriented x 3, no acute motor or sensory deficits, no focal weakness. SKIN: No rash, no jaundice, no diaphoresis. Course 1801: Past medical records reviewed. The patient was evaluated in room D3A, and a complete history and physical examination were performed. 7: [facility] He will evaluate the patient for further management. 193: I re-evaluated the patient and updated her on her test results. Consultations Consultation #1: [facility] He will evaluate the patient for further management. Time: 19:27 Administered Medications Apixaban (Eliquis) 5 mg PO BID ALTHEA Stop: 10/25/18 08:59 Last Admin: 09/25/18 08:04 Dose: 5 mg Divalproex Sodium (Depakote Delay Release) 500 mg PO TID [facility] Stop: 10/25/18 08:59 Last Admin: 09/25/18 08:03 Dose: 500 mg Diltiazem HCl 125 mg/ Dextrose 125 mls @ 5 mls/hr IV .Q24H ALTHEA; Protocol Stop: 10/24/18 22:44 Last Titration: 09/25/18 09:05 Dose: 0 mg/hr, 0 mls/hr Titration: 09/25/18 07:02 Dose: 5 mg/hr, 5 mls/hr Admin: 09/25/18 01:19 Dose: 5 mg/hr, 5 mls/hr Metoprolol Tartrate (Lopressor) 25 mg PO BID [facility] Stop: 10/24/18 22:44 Last Admin: 09/25/18 08:03 Dose: 25 mg Admin: 09/25/18 00:15 Dose: 25 mg Discontinued Medications Diltiazem HCl (Cardizem) 15 mg IV NOW STA Stop: 09/24/18 18:04 Last Admin: 09/24/18 18:39 Dose: 15 mg Diltiazem HCl 125 mg/ Dextrose 125 mls @ 0 mls/hr IV .Q0M STA; Protocol Stop: 09/24/18 18:04 Last Admin: 09/24/18 18:42 Dose: 5 mg/hr, 5 mls/hr Sodium Chloride (Nss) 500 mls @ 999 mls/hr IV .Q31M ALTHEA Stop: 09/24/18 18:45 Last Infusion: 09/24/18 19:42 Dose: 0 mls/hr Admin: 09/24/18 18:39 Dose: 999 mls/hr Medical Decision Making Differential Diagnosis Differential Diagnosis includes: atrial flutter, atrial fibrillation., SVT, electrolyte abnormality, anemia, cardiac ischemia, CHF, thyroid disorder Medical Records Attestation: I reviewed the patient's medical records. Home Medications Current Medication List: was personally reviewed by me Laboratory Data Attestation: I reviewed the patient's lab results. Result diagrams: 09/25/18 04:41 09/25/18 04:41 Lab Results 09/24/18 09/24/18 09/24/18 Range/Units 18:00 18:00 18:00 WBC 6.80 (4.8-10.8) K/uL RBC 5.60 H (4.2-5.4) M/uL Hgb 15.9 (12.0-16.0) g/dL Hct 49.0 H (37-47) % MCV 87.5 (80-100) fL MCH 28.4 (25-34) pg MCHC 32.4 (32-36) g/dL RDW Std Deviation 46.5 H (36.4-46.3) fL RDW Coeff of Artemio 14.5 (11.5-14.5) % Plt Count 206 (130-400) K/uL MPV 11.6 H (7.4-10.4) fL Immature Gran % (Auto) 0.1 % Neut % (Auto) 45.3 % Lymph % (Auto) 43.5 % Fergus % (Auto) 10.3 % Eos % (Auto) 0.7 % Baso % (Auto) 0.1 % Immature Gran # (Auto) 0.01 (0.00-0.02) K/uL Neut # (Auto) 3.07 (1.4-6.5) K/uL Lymph # (Auto) 2.96 (1.2-3.4) K/uL Fergus # (Auto) 0.70 H (0.11-0.59) K/uL Eos # (Auto) 0.05 (0-0.5) K/uL Baso # (Auto) 0.01 (0-0.2) K/uL PT 11.4 (9.0-12.0) Seconds INR 1.1 (0.9-1.1) APTT 28.4 (21.0-31.0) Seconds PTT Ratio 1.1 Sodium 138 (136-145) mmol/L Potassium 3.6 (3.5-5.1) mmol/L Chloride 104 (98-107) mmol/L Carbon Dioxide 32 (21-32) mmol/L Anion Gap 2.0 L (3-11) BUN 19 H (7-18) mg/dl Creatinine 0.83 (0.6-1.2) mg/dl Est Cr Clr Drug Dosing 117.6 ml/min Est GFR ( Amer) 91.4 Est GFR (Non-Af Amer) 78.8 BUN/Creatinine Ratio 23.6 H (10-20) Glucose 100 H (70-99) mg/dl Calcium 9.9 (8.5-10.1) mg/dl Magnesium 2.2 (1.8-2.4) mg/dl Total Bilirubin 0.4 (0.2-1) mg/dl AST 15 (15-37) U/L ALT 30 (12-78) U/L Alkaline Phosphatase 108 (45-117) U/L Troponin I < 0.015 (0-0.045) ng/ml Total Protein 8.1 (6.4-8.2) gm/dl Albumin 4.0 (3.4-5.0) gm/dl Globulin 4.1 H (2.5-4.0) gm/dl Albumin/Globulin Ratio 1.0 (0.9-2) TSH 4.630 H (0.300-4.500) uIu/ml 09/25/18 09/25/18 Range/Units 04:41 04:41 WBC 6.86 (4.8-10.8) K/uL RBC 4.86 (4.2-5.4) M/uL Hgb 13.4 (12.0-16.0) g/dL Hct 42.3 (37-47) % MCV 87.0 (80-100) fL MCH 27.6 (25-34) pg MCHC 31.7 L (32-36) g/dL RDW Std Deviation 46.5 H (36.4-46.3) fL RDW Coeff of Artemio 14.8 H (11.5-14.5) % Plt Count 182 (130-400) K/uL MPV 11.2 H (7.4-10.4) fL Immature Gran % (Auto) 0.1 % Neut % (Auto) 39.5 % Lymph % (Auto) 49.3 % Fergus % (Auto) 10.1 % Eos % (Auto) 0.9 % Baso % (Auto) 0.1 % Immature Gran # (Auto) 0.01 (0.00-0.02) K/uL Neut # (Auto) 2.71 (1.4-6.5) K/uL Lymph # (Auto) 3.38 (1.2-3.4) K/uL Fergus # (Auto) 0.69 H (0.11-0.59) K/uL Eos # (Auto) 0.06 (0-0.5) K/uL Baso # (Auto) 0.01 (0-0.2) K/uL PT (9.0-12.0) Seconds INR (0.9-1.1) APTT (21.0-31.0) Seconds PTT Ratio Sodium 140 (136-145) mmol/L Potassium 4.1 (3.5-5.1) mmol/L Chloride 107 (98-107) mmol/L Carbon Dioxide 31 (21-32) mmol/L Anion Gap 2.0 L (3-11) BUN 20 H (7-18) mg/dl Creatinine 0.74 (0.6-1.2) mg/dl Est Cr Clr Drug Dosing 133.2 ml/min Est GFR ( Amer) 105.0 Est GFR (Non-Af Amer) 90.6 BUN/Creatinine Ratio 27.6 H (10-20) Glucose 103 H (70-99) mg/dl Calcium 9.1 (8.5-10.1) mg/dl Magnesium 2.3 (1.8-2.4) mg/dl Total Bilirubin (0.2-1) mg/dl AST (15-37) U/L ALT (12-78) U/L Alkaline Phosphatase (45-117) U/L Troponin I (0-0.045) ng/ml Total Protein (6.4-8.2) gm/dl Albumin (3.4-5.0) gm/dl Globulin (2.5-4.0) gm/dl Albumin/Globulin Ratio (0.9-2) TSH 3.120 (0.300-4.500) uIu/ml Imaging Data Radiologist's Impression: Radiology results as stated below per my review and the radiologist's interpretation: XR chest 1V portable CLINICAL HISTORY: 58 years-old Female presenting with weakness. TECHNIQUE: Portable upright AP view of the chest was obtained. COMPARISON: 09/21/2018 and CTA from 09/17/2018. FINDINGS: associate engineer projects over the periphery of the left midlung degrading evaluation of this region. Cardiac silhouette mildly enlarged. Lungs and pleural spaces clear. Degenerative changes of the thoracic spine. IMPRESSION: 1. Mild cardiomegaly. No other convincing evidence of acute cardiopulmonary disease. Electronically signed by: Clint Ferrara M.D. 09/24/2018 7:01 PM ECG Data Attestation: I personally reviewed and interpreted this ECG as follows: Indication: palpitations Rate (beats per minute): 138 Rhythm: atrial flutter Findings: + other (diffuse nonspecific-ST change); no PVC and no ST elevation Blood Pressure Blood Pressure Findings: Normal blood pressure Blood Pressure Disposition: did not require urgent referral MDM Narrative There is no leukocytosis or worrisome anemia. No significant electrolyte abnormality, kidney failure or hepatitis. There is no coagulopathy. EKG reveals a rapid atrial flutter, no obvious acute ischemia. Cardiac enzyme testing x1 is not consistent with acute cardiac injury. Chest x-ray does not show mediastinal widening, CHF or pneumonia. TSH was very minimally elevated at 4.6. The patient was not in significant distress. She presents in atrial flutter. She had the same issue a very short time ago. She is taking her metoprolol and Eliquis as prescribed. Patient received a 500 cc saline bolus. She was placed on a diltiazem drip after a diltiazem IV bolus. Her heart rate is decreasing. The patient requires a hospital stay. She may need an ablation which was talked about with her before. She is in no condition for discharge. I did speak to the patient and case management. The on-call hospitalist was consulted. Impression & Plan Atrial flutter with rapid ventricular response Critical Care Time I have personally spent greater than 35 minutes of critical care time in the direct management of this patient. This includes bedside care, interpretation of diagnostic studies, and testing, discussion with consultants, patient, and family members, and other required patient management activities. This 35 minutes is in excess of all separately billable procedures. Critical Care Time: Yes Discharge Plan Visit Data *Final* Discharge Date/Time: 09/24/18 22:11 Chief Complaint: Arrhythmia/Palpitations Stated Complaint: AFIB- CARDIAC HX ED Provider: Miguel Macias Discharge Problem: Atrial flutter with rapid ventricular response Patient Disposition: Admitted As Inpatient Discharge Instructions Interventions: ED Discharge Assessment Last Done: 09/24/18 22:11 The scribe's documentation has been prepared under my direction and personally reviewed by me in its entirety. I confirm that the note above accurately reflects all work, treatment, procedures, and medical decision making performed by me.
[2018-09-24] MEDS ORDERED: dilTIAZem HCl 125 MG in DEXTROSE 5% 100 ML IV SCH (22:45)
[2018-09-24] MEDS ORDERED: PANTOprazole 40 MG TAB PO PRN (22:45)
[2018-09-24] MEDS ORDERED: LEVALBUTEROL TARTRATE 15 GM HFA.AER.AD INH PRN (22:45)
[2018-09-24] MEDS ORDERED: NITROGLYCERIN SL 0.4 MG/TAB TAB SL PRN (22:45)
[2018-09-24] MEDS ORDERED: ONDANSETRON INJ 2 MG/ML 2 ML VIAL IV PRN (22:45)
[2018-09-25] MEDS: METOPROLOL TARTRATE 25 MG TAB PO SCH ×3 (00:15→20:21)
--- NOTE | 2018-09-25 00:52 | History and Physical Report ---
DATE OF ADMISSION: 09/24/2018 CHIEF COMPLAINT: Rapid atrial flutter. HISTORY OF PRESENT ILLNESS: This 58-year-old female with past medical history significant for mild intermittent asthma, recently treated for bronchitis, still has mild cough. She was recently in the hospital and found to be in rapid atrial flutter. There is a plan for ablation, but patient converted spontaneously to sinus rhythm and discharged on Eliquis and metoprolol. History of obesity, reflux esophagitis, and history of epilepsy. Comes back with rapid atrial flutter. She does not feel any flutter. Denies any chest pain, no shortness of breath. Still has mild cough, no headache, no dizziness, no earaches, no runny nose, no sore throat, no difficulty swallowing. No nausea, no abdominal pain. Normal bowel and bladder movements. No blood in the urine. No blood in the stools. Her PCP has given her heart monitor and told to check before she works out. Before she went to gym, she checked and heart rate was in the 140s, so she went to PCP and advised to come to the ER. Currently, started on Cardizem dripin Er and heart rate in the 90s, resting comfortably. ALLERGIES: ACTIFIED, ALBUTEROL, CODEINE, LEVAQUIN, MORPHINE, AND PSEUDOEPHEDRINE. PAST MEDICAL HISTORY: As mentioned above. PAST SURGICAL HISTORY: Colonoscopy with biopsy, knee arthroscopy with meniscectomy and debridement, tonsillectomy, adenoidectomy, right rotator cuff repair. MEDICATIONS: Currently, the patient is on Eliquis 5 mg p.o. b.i.d., Toprol-XL 25 mg p.o. daily, Depakote 500 mg p.o. t.i.d., Xopenex 2 puffs every 4 hours p.r.n., Protonix 40 mg p.o. daily. FAMILY HISTORY: Mother has glaucoma, allergies, congenital anatomy of heart disorder, but is asymptomatic. Father has gastritis and diverticulitis. Great aunt has ovarian cancer. Maternal aunt has uterine cancer. SOCIAL HISTORY: . No smoking history. Alcohol rare. No drug use. REVIEW OF SYMPTOMS: As per HPI. Rest of review of symptoms negative. PHYSICAL EXAMINATION: GENERAL: The patient is obese, not in acute distress. VITAL SIGNS: Temperature 36.8, pulse when she came in was in the 140s and currently 90s, blood pressure 150/92, oxygen 96% room air. HEENT: No pallor, no icterus. Pupils equal, round, and reactive to light. NECK: No JVD, no neck masses, no carotid bruits. CARDIOVASCULAR: S1, S2 heard. Irregular rhythm. No murmurs. RESPIRATORY SYSTEM: Normal AP diameter. No accessory muscle use. No wheezing, no crackles. ABDOMEN: Soft, bowel sounds present. Nontender. No distention. CENTRAL NERVOUS SYSTEM: Cranial nerves II-XII grossly intact. Nonfocal. EXTREMITIES: No edema, no erythema. LABS: WBC 6.8, hemoglobin 15.9, hematocrit 49, platelets 206. PT 11.4, INR 1.1, APTT 28.4. Sodium 138, potassium 3.6, chloride 104, CO2 32, BUN 19, creatinine 0.8, serum glucose 100, calcium 9.9, magnesium 2.2, total bilirubin 0.4, AST 15, ALT 30, alkaline phosphatase is 108. Troponin I less than 0.015. TSH 4.6. Chest x-ray mild cardiomegaly, no acute findings seen. EKG: Atrial flutter with 2:1 block at a rate of 138. ASSESSMENT AND PLAN: This is a 58-year-old female who was recently diagnosed with rapid atrial flutter and converted to sinus rhythm at the time of discharge, comes back with rapid atrial flutter. 1. Rapid atrial flutter. The patient was recently discharged on Eliquis and metoprolol. At that time, there was plan for AV ablation, but was converted to sinus rhythm and was discharged home on above medications. Comes back with rapid atrial flutter. Currently, on Cardizem drip. Rate is under control. We will continue Cardizem drip. We will continue home Lopressor and Eliquis. Monitor on tele floor. We will keep n.p.o. after midnight and consult cardiology in morning. 2. History of asthma. Recently treated for bronchitis .on Xopenex pnr. Stable 3. History of epilepsy, on Depakote. 4. Obesity, needs sleep study as outpatient. 5. History of reflux esophagitis, on Protonix. 3. Deep venous thrombosis prophylaxis, currently on Eliquis. DISPOSITION: Admit to tele floor. Expect discharge home and follow with family doctor. Level 1 full code. MTDD
[2018-09-25 04:54] LABS: Basophils # (auto) 0.01 K/uL (0-0.2); Basophils % (auto) 0.1 %; Eosinophils # (auto) 0.06 K/uL (0-0.5); Eosinophils % (auto) 0.9 %; Hematocrit (blood only) 42.3 % (37-47); Hemoglobin 13.4 g/dL (12.0-16.0); Immature Granulocytes # (auto) 0.01 K/uL (0.00-0.02); Immature Granulocytes % (auto) 0.1 %; Lymphocytes # (auto) 3.38 K/uL (1.2-3.4); Lymphocytes % (auto) 49.3 %; Mean Corpuscular Hgb Conc 31.7 g/dL (32-36); Mean Platelet Volume 11.2 fL (7.4-10.4); Monocytes # (auto) 0.69 K/uL (0.11-0.59); Monocytes % (auto) 10.1 %; Neutrophils # (auto) 2.71 K/uL (1.4-6.5); Neutrophils % (auto) 39.5 %; Platelet Count 182 K/uL (130-400); RDW Coefficient of Variation 14.8 % (11.5-14.5); RDW Standard Deviation 46.5 fL (36.4-46.3); Red Blood Count 4.86 M/uL (4.2-5.4); White Blood Count 6.86 K/uL (4.8-10.8)
[2018-09-25 05:11] LABS: BUN Creatinine Ratio 27.6 (10-20); Calcium 9.1 mg/dl (8.5-10.1); Creatinine Clr Calc Pharmacy 133.2 ml/min; Est GFR (Non-African American) 90.6; Magnesium 2.3 mg/dl (1.8-2.4); Potassium 4.1 mmol/L (3.5-5.1)
[2018-09-25] MEDS: DIVALPROEX DELAY RELEASE 500 MG TAB PO SCH ×3 (08:03→20:21)
[2018-09-25] MEDS: APIXABAN 5 MG TABLET PO SCH ×2 (08:04→20:20)
--- NOTE | 2018-09-25 09:27 | Cardiology Consultation ---
Date of Consultation September 25, 2018 Assessment & Plan (1) Atrial flutter with rapid ventricular response: Patient presents with recurrent atrial flutter and rapid ventricular response. Minimal symptoms noted. She is properly anticoagulated with Eliquis. Currently sinus bradycardia in the 50s. Recommend discontinuation of intravenous diltiazem. Case discussed with electrophysiology. Plan for flutter ablation on 09/27/18. Risks of procedure previously discussed with patient. She is agreeable. P.m. dose of Eliquis will be held 09/26/18. (2) Seizure disorder: No medication changes at this time (3) Asthma: Stable without active wheeze. History of Present Illness Reason for Consultation: Atrial flutter Requesting Physician: Dr. England Attending Physician: Vasu Cervantes MD History of Present Illness 58-year-old female presented to the emergency department secondary to tachycardia. Patient recently admitted for new onset atrial flutter. She spontaneously converted to sinus rhythm during that hospitalization. Flutter ablation was contemplated however canceled at that time. Patient was tentatively scheduled for an outpatient 0 monitor to assess for recurrence. Her initial episode of atrial flutter occurred in the setting of upper respiratory tract infection/bronchitis. Patient returned to the gym yesterday to begin light exercise. Pulse rate per monitor at the gym was 130 bpm. She then was evaluated by her PCP who referred her to the emergency department. Patient again noted to be in atrial flutter with 2-1 conduction. She received intravenous diltiazem as well as metoprolol. Spontaneously converted to sinus rhythm last evening. Currently asymptomatic with a diltiazem infusion at 5 mg/h. Denies associated chest pain or shortness of breath. Minimally symptomatic during episodes of atrial flutter. No orthopnea, PND, lower extremity edema. Denies any cough, fever, chills, rhinorrhea, or other upper respiratory tract infection signs/symptoms. Allergies Allergy/AdvReac Type Severity Reaction Status Date / Time pseudoephedrine Allergy Mild HYPERVENTIL Verified 09/17/18 11:24 ATE triprolidine Allergy Mild HYPERVENTIL Verified 09/17/18 11:24 ATE levofloxacin Allergy Unknown SWELLING, Verified 09/17/18 11:24 JOINT PAIN oxycodone Allergy Unknown HAD Verified 09/17/18 11:24 "WITHDRAWL" WHEN STOPPED adhesive AdvReac Mild Redness of Verified 09/20/18 06:57 Skin - Bandaids adhesive tape AdvReac Mild Redness of Verified 09/20/18 06:58 Skin albuterol AdvReac Unknown JITTER, Verified 09/17/18 11:24 RAPID HEART RATE morphine AdvReac Unknown SEE NOTES Verified 09/17/18 11:24 Home Medications Home Medications Medication Instructions Recorded Confirmed Type divalproex [Depakote] 500 mg PO TID 09/15/18 09/24/18 History levalbuterol tartrate [Xopenex HFA] 2 puff INHALATION UD PRN 09/15/18 09/24/18 History apixaban [Eliquis] 5 mg PO BID 30 Days #60 tab 09/20/18 09/24/18 Rx metoprolol tartrate 25 mg PO BID 30 Days #60 tab 09/20/18 09/24/18 Rx pantoprazole 40 mg PO QAM PRN 09/24/18 09/24/18 History Patient History Medical History Bronchitis (Chronic) Atrial flutter (Chronic) NEW ONSET- 08/2018; STARTED ON ELIQUIS/BETA CARON Acid reflux CONTROLLED Arthritis Asthma Diverticulitis REMOTE History of kidney stones History of seizures LAST SEIZURE 10+ YEARS AGO Morbid obesity Surgical History History of ankle surgery LEFT History of arthroscopy of left shoulder History of arthroscopy of right knee X3 History of arthroscopy of right shoulder X3 History of colonoscopy History of total knee arthroplasty RIGHT Family History Father Family history of bladder cancer Social History Current Living Situation: Family Current Living Situation Comment: Lives home with 16 y/o son Feels Safe at Home: Yes Safety Concerns: Feels Safe At This Time Smoking Status: Never smoker Hx Alcohol Use: Yes Alcohol type: beer and wine Alcohol Intake Frequency: holidays/special occasions only Hx Substance Use: No Beliefs That Will Affect Care: None Communication Ability: Effective Review of Systems The pertinent positives noted per HPI, conference of 10 system review otherwise negative. Physical Exam 2 Vital Signs (Past 24 Hours): Last Vital Signs Temp 36.6 C 09/25/18 07:04 Pulse 96 H 09/25/18 07:04 Resp 18 09/25/18 07:04 BP 92/64 L 09/25/18 07:04 Pulse Ox 96 09/25/18 07:04 Physical Exam: General: NAD, AAO x3, well nourished. HEENT: Normocephalic. Atraumatic. Conjunctiva pink, no scleral icterus. Neck: No carotid bruits, the carotid upstrokes are brisk. No JVD. No HJR Heart: Regular normal S-1 and S-2 no S-3 or S-4 gallop. No murmurs or rub appreciated. PMI is not displaced. No RV heave. Lungs: Clear bilateral without rales , rhonchi, or wheeze. Abdomen: Normal bowel sounds. Soft. Nontender. No masses or organomegaly. No abdominal bruits. Extremities: No clubbing, cyanosis, or edema. Pulses: radial=2/4, Dorsalis pedis =2/4, posterior tibial=2/4. Neuro: Cranial nerves grossly intact. No focal motor deficit.
--- NOTE | 2018-09-25 18:41 | Hospitalist Progress Note ---
Date of Service September 25, 2018 Assessment & Plan (1) Atrial flutter with rapid ventricular response: Started on diltiazem drip. Converted to NSR. Seen in consultion by Cardiology. Diltiazem discontinued. Continue metoprolol. Continue anticoagulation with apixaban. Ablation recommended. (2) Asthma: Pulmonary status stable. (3) Seizure disorder: Stable. Continue divalproex. (4) DVT prophylaxis: Receiving apixaban for atrial flutter. Ambulate. (5) Discharge planning issues: Anticipated discharge to home. Family Medicine follow-up with Dr. Redman. Cardiology follow-up with [facility]. Subjective Recheck for atrial flutter and other problems. Pt seen in her room around 1820. Admitted last evening with recurrent atrial flutter. Placed on diltiazem drip. Converted to NSR during the night. No chest pain, palpitations, SOB, edema. No fever. No wheezing or SOB. No nausea, vomiting, diarrhea. Physical Exam 2 Vital Signs (Past 24 Hours): Last Vital Signs Temp 36.4 C L 09/25/18 15:11 Pulse 68 09/25/18 15:11 Resp 20 09/25/18 15:11 BP 100/65 09/25/18 15:11 Pulse Ox 99 09/25/18 15:11 Constitutional: no acute distress Respiratory: no respiratory distress Auscultation: lungs clear to auscultation bilaterally Cardiovascular: Rate/Rhythm: regular rate and regular rhythm Heart Sounds: no gallop, no murmur and no cardiac rub Vessels: no JVD Extremities: no calf tenderness and no edema Gastrointestinal (Abdomen): normal bowel sounds, soft, nontender, no hepatosplenomegaly Skin: no rashes, warm and dry Psychiatric: Orientation: alert and oriented x 3 Results & Data Laboratory Results Laboratory Results - last 24 hr 09/24/18 09/25/18 09/25/18 18:00 04:41 04:41 WBC 6.86 RBC 4.86 Hgb 13.4 Hct 42.3 MCV 87.0 MCH 27.6 MCHC 31.7 L RDW Std Deviation 46.5 H RDW Coeff of Artemio 14.8 H Plt Count 182 MPV 11.2 H Immature Gran % (Auto) 0.1 Neut % (Auto) 39.5 Lymph % (Auto) 49.3 Fannin % (Auto) 10.1 Eos % (Auto) 0.9 Baso % (Auto) 0.1 Immature Gran # (Auto) 0.01 Neut # (Auto) 2.71 Lymph # (Auto) 3.38 Fannin # (Auto) 0.69 H Eos # (Auto) 0.06 Baso # (Auto) 0.01 Sodium 138 140 Potassium 3.6 4.1 Chloride 104 107 Carbon Dioxide 32 31 Anion Gap 2.0 L 2.0 L BUN 19 H 20 H Creatinine 0.83 0.74 Est Cr Clr Drug Dosing 117.6 133.2 Est GFR ( Amer) 91.4 105.0 Est GFR (Non-Af Amer) 78.8 90.6 BUN/Creatinine Ratio 23.6 H 27.6 H Glucose 100 H 103 H Calcium 9.9 9.1 Magnesium 2.2 2.3 Total Bilirubin 0.4 AST 15 ALT 30 Alkaline Phosphatase 108 Troponin I < 0.015 Total Protein 8.1 Albumin 4.0 Globulin 4.1 H Albumin/Globulin Ratio 1.0 TSH 4.630 H 3.120 ECG Additional Comments: EKG performed at 0642 reviewed and demonstrated NSR at 60/min, incomplete RBBB, inverted T-waves I, aVL, V2-6.
[2018-09-26] MEDS ORDERED: SODIUM CHLORIDE 0.9% 500 ML IV SCH (05:30)
[2018-09-26] MEDS: SODIUM CHLORIDE 0.9% 1000ML 1,000 ML IV SCH ×2 (06:16→16:38)
[2018-09-26] MEDS: DIVALPROEX DELAY RELEASE 500 MG TAB PO SCH ×3 (07:53→20:54)
[2018-09-26] MEDS: APIXABAN 5 MG TABLET PO SCH (10:04)
[2018-09-26] MEDS: METOPROLOL TARTRATE 25 MG TAB PO SCH ×2 (10:04→20:57)
--- NOTE | 2018-09-26 15:56 | Cardiology Progress Note ---
Date of Service September 26, 2018 Assessment & Plan (1) Atrial flutter with rapid ventricular response: Scheduled for flutter ablation on 09/27/18. Risks of procedure previously discussed with patient. She is agreeable. P.m. dose of Eliquis will be held today. (2) Seizure disorder: No medication changes at this time (3) Asthma: Stable without active wheeze. Subjective Patient seen and examined at the bedside. Remains in Sinus rhythm. No CP, palpitations, or SOB. Tolerating diet and meds. Family present. Offers no complaints. Review of Systems All systems reviewed & are unremarkable except as noted in HPI & below Physical Exam 2 Vital Signs (Past 24 Hours): Last Vital Signs Temp 36.6 C 09/26/18 15:21 Pulse 57 L 09/26/18 15:21 Resp 18 09/26/18 15:21 BP 94/62 L 09/26/18 15:21 Pulse Ox 96 09/26/18 15:21 Physical Exam: General: NAD, AAO x3, well nourished. HEENT: Normocephalic. Atraumatic. Conjunctiva pink, no scleral icterus. Neck: No carotid bruits, the carotid upstrokes are brisk. No JVD. No HJR Heart: Regular normal S-1 and S-2 no S-3 or S-4 gallop. No murmurs or rub appreciated. PMI is not displaced. No RV heave. Lungs: Clear bilateral without rales , rhonchi, or wheeze. Abdomen: Normal bowel sounds. Soft. Nontender. No masses or organomegaly. No abdominal bruits. Extremities: No clubbing, cyanosis, or edema. Pulses: radial=2/4, Dorsalis pedis =2/4, posterior tibial=2/4. Neuro: Cranial nerves grossly intact. No focal motor deficit.
--- NOTE | 2018-09-26 16:37 | Hospitalist Progress Note ---
Date of Service September 26, 2018 Assessment & Plan (1) Atrial flutter with rapid ventricular response: Started on diltiazem drip. Converted to NSR. Seen in consultion by Cardiology. Diltiazem discontinued. Continue metoprolol. Continue anticoagulation with apixaban. Ablation scheduled for tomorrow. (2) Asthma: Pulmonary status stable. (3) Seizure disorder: Stable. Continue divalproex. (4) DVT prophylaxis: Receiving apixaban for atrial flutter. Ambulate. (5) Discharge planning issues: Anticipated discharge to home. Family Medicine follow-up with Dr. Redman. Cardiology follow-up with [facility]. Subjective Recheck for atrial flutter and other problems. Pt seen in her room around 1620. Remains in NSR. No chest pain, palpitations, SOB, edema. Scheduled for ablation tomorrow. No fever. No wheezing or SOB. No nausea, vomiting, diarrhea. Physical Exam 2 Vital Signs (Past 24 Hours): Last Vital Signs Temp 36.6 C 09/26/18 15:21 Pulse 57 L 09/26/18 15:21 Resp 18 09/26/18 15:21 BP 94/62 L 09/26/18 15:21 Pulse Ox 96 09/26/18 15:21 Constitutional: no acute distress Respiratory: no respiratory distress Auscultation: lungs clear to auscultation bilaterally Cardiovascular: Rate/Rhythm: regular rate and regular rhythm Heart Sounds: no gallop, no murmur and no cardiac rub Vessels: no JVD Extremities: no calf tenderness and no edema Gastrointestinal (Abdomen): normal bowel sounds, soft, nontender, no hepatosplenomegaly Skin: no rashes, warm and dry Psychiatric: Orientation: alert and oriented x 3
[2018-09-27] MEDS: METOPROLOL TARTRATE 25 MG TAB PO SCH ×2 (07:36→20:25)
[2018-09-27] MEDS: DIVALPROEX DELAY RELEASE 500 MG TAB PO SCH ×3 (07:36→20:26)
[2018-09-27] MEDS ORDERED: fentaNYL citrate 100 MCG/2 ML VIAL ONE ×3 (10:54→12:51)
[2018-09-27] MEDS ORDERED: MIDAZOLAM HCL 5 MG/ML 1 ML VIAL ONE ×2 (10:54→11:23)
--- NOTE | 2018-09-27 10:58 | Pre Anesthesia Assessment ---
Date of Service September 27, 2018 Pre Sedation Assessment Vital Signs Temp Pulse Pulse Resp BP Pulse Ox 09/27/18 07:30 36.4 C L 60 18 104/69 98 09/27/18 04:21 37 C 66 16 111/74 97 09/27/18 01:53 55 L 09/26/18 23:05 36.6 C 62 16 112/77 98 09/26/18 20:57 56 L 09/26/18 19:37 36.6 C 57 L 18 104/70 99 09/26/18 15:21 36.6 C 57 L 18 94/62 L 96 Cardiovascular + regular rate Respiratory + respiratory effort normal Pre-Sedation Airway Assessment Smoking Status: Never smoker Hx Sleep Apnea: No Hx Difficult Intubation: No Short, Thick Neck: No Thyromental Distance: > or= 3.5 Finger Breadths Oral Cavity: + WNL Mallampati Class: III ASA: ASA3 Procedure Planning Contraindications for Sedation: none Current Medications Reviewed: Yes Notes The planned sedation has been discussed with the patient. Informed Consent was obtained. I have identified the patient, determined the appropriateness of sedation and have assessed the patient immediately prior to the procedure. All medicine(s) and interventions are by my order.
--- NOTE | 2018-09-27 12:18 | Hospitalist Progress Note ---
Date of Service September 27, 2018 Assessment & Plan (1) Atrial flutter with rapid ventricular response: Started on diltiazem drip. Converted to NSR. Seen in consultion by Cardiology. Diltiazem discontinued. Continue metoprolol. Continue anticoagulation with apixaban. Ablation scheduled for today. (2) Asthma: Pulmonary status stable. (3) Seizure disorder: Stable. Continue divalproex. (4) DVT prophylaxis: Receiving apixaban for atrial flutter. Ambulate. (5) Discharge planning issues: Anticipated discharge to home. Family Medicine follow-up with Dr. Redman. Cardiology follow-up with [facility]. Subjective Recheck for atrial flutter and other problems. Pt seen in her room around 0950. Remains in NSR. No chest pain, palpitations, SOB, edema. Scheduled for ablation today. No fever. No wheezing or SOB. No nausea, vomiting. Physical Exam 2 Vital Signs (Past 24 Hours): Last Vital Signs Temp 36.4 C L 09/27/18 07:30 Pulse 60 09/27/18 07:30 Resp 18 09/27/18 07:30 BP 104/69 09/27/18 07:30 Pulse Ox 98 09/27/18 07:30 Constitutional: no acute distress Respiratory: no respiratory distress Auscultation: lungs clear to auscultation bilaterally Cardiovascular: Rate/Rhythm: regular rate and regular rhythm Heart Sounds: no gallop, no murmur and no cardiac rub Vessels: no JVD Extremities: no calf tenderness and no edema Gastrointestinal (Abdomen): normal bowel sounds, soft, nontender, no hepatosplenomegaly Skin: no rashes, warm and dry Psychiatric: Orientation: alert and oriented x 3
[2018-09-27] MEDS ORDERED: MIDAZOLAM HCL 1 MG/ML 2ML VIAL ONE (13:22)
[2018-09-27] MEDS ORDERED: ACETAMINOPHEN 325 MG TAB PO PRN (13:38)
--- NOTE | 2018-09-27 13:38 | Post Operative Brief Note ---
Cardiology Brief Post Op Date of Surgery September 27, 2018 Pre & Post Diagnosis Operation Date: 09/27/18 10:00 <No data on this case meets the specified criteria> Procedure EPS/ablation [employer]ilermaker Loftsman Yobany Church MD General Operations Agent none Estimated Blood Loss 20 Findings Consistent with Post-Op Diagnosis Creation of bidirectional block through the CTI. NO inducible AFL Complications none Disposition Accompanied Patient To Recovery: No Disposition: PCU Overlapping Procedure I was immediately available: during the entire case.
[2018-09-27] MEDS: ACETAMINOPHEN 325 MG TAB PO PRN (14:15)
--- NOTE | 2018-09-27 15:42 | Cardiology Progress Note ---
Date of Service September 27, 2018 Assessment & Plan (1) Atrial flutter with rapid ventricular response: Flutter ablation performed today without complication. Restart Eliquis this evening. Transition metoprolol tartrate to Toprol-XL 25 mg daily. Tentative plan for discharge in a.m. 09/28/18. (2) Seizure disorder: No medication changes at this time (3) Asthma: Stable without active wheeze. Subjective Patient seen and examined at the bedside. Flutter ablation performed today without complication. She remains somewhat sedated however arouses to verbal stimuli. Denies pain or discomfort. No ecchymosis or hematoma. Denies any groin discomfort. Offers no concerns/complaints at this time. Review of Systems All systems reviewed & are unremarkable except as noted in HPI & below Physical Exam 2 Vital Signs (Past 24 Hours): Last Vital Signs Temp 36.2 C L 09/27/18 15:19 Pulse 59 L 09/27/18 15:19 Resp 16 09/27/18 15:19 BP 115/74 09/27/18 15:19 Pulse Ox 97 09/27/18 15:19 Physical Exam: General: NAD, AAO x3, well nourished. Obese. HEENT: Normocephalic. Atraumatic. Conjunctiva pink, no scleral icterus. Neck: No carotid bruits, the carotid upstrokes are brisk. No JVD. No HJR Heart: Regular normal S-1 and S-2 no S-3 or S-4 gallop. No murmurs or rub appreciated. PMI is not displaced. No RV heave. Lungs: Clear bilateral without rales , rhonchi, or wheeze. Abdomen: Normal bowel sounds. Soft. Nontender. No masses or organomegaly. No abdominal bruits. Extremities: No ecchymosis or hematoma. No clubbing, cyanosis, or edema. Pulses: radial=2/4, Dorsalis pedis =2/4, posterior tibial=2/4. Neuro: Cranial nerves grossly intact. No focal motor deficit.
[2018-09-27] MEDS: APIXABAN 5 MG TABLET PO SCH (21:01)
[2018-09-28] MEDS: DIVALPROEX DELAY RELEASE 500 MG TAB PO SCH ×2 (08:04→14:44)
[2018-09-28] MEDS: METOPROLOL TARTRATE 25 MG TAB PO SCH (08:04)
[2018-09-28] MEDS: APIXABAN 5 MG TABLET PO SCH (08:04)
[2018-09-28] MEDS: ACETAMINOPHEN 325 MG TAB PO PRN (11:05)
[2018-09-28 11:47] VITALS: BP 129/68; PULSE 71; TEMP 98.1; O2SAT 97
--- NOTE | 2018-09-28 11:47 | Cardiology Progress Note ---
Date of Service September 28, 2018 Assessment & Plan (1) Atrial flutter with rapid ventricular response: Patient did undergo catheter based therapy yesterday for cure of typical right atrial flutter. No complications related to the procedure. She was instructed to refrain from lifting over 10 pounds for approximately 7 days. She could resume her normal activity otherwise. She should clean the access sites clean and dry but does not require any additional bandage. She will continue on her Eliquis and follow up with me in the clinic in appeared 1 months time. I do not believe she requires any metoprolol from a rhythm standpoint. This was prescribed exclusively for her atrial flutter then I think she could discontinue metoprolol at this time. Present on Admission?: Yes Subjective This morning patient claims to be feeling well. She has no discomfort at her access site in the right groin. She has been ambulatory around her room without significant dizziness or discomfort. Physical Exam 2 Vital Signs (Past 24 Hours): Last Vital Signs Temp 36.8 C 09/28/18 08:01 Pulse 65 09/28/18 08:01 Resp 18 09/28/18 08:01 BP 131/74 09/28/18 08:01 Pulse Ox 96 09/28/18 08:01 Physical Exam: Evaluation of the right neck and right groin did not reveal any evidence of hematoma or bruit. No bleeding. No significant ecchymosis.
--- NOTE | 2018-09-28 12:04 | Cardiology Progress Note ---
Date of Service September 28, 2018 Assessment & Plan (1) Atrial flutter with rapid ventricular response: s/p flutter 09/27/18 without complication. Continue Eliquis. Transition metoprolol tartrate to Toprol-XL. EP follow-up in 4 weeks. General cardiology follow-up as scheduled with Dr. Matson. (2) Seizure disorder: No medication changes at this time (3) Asthma: Stable without active wheeze. Subjective Patient feeling well from a cardiovascular perspective. Anxious for discharge. Remains in sinus rhythm on telemetry. No chest pain or shortness of breath. Tolerating diet medication. Offers no complaints. Review of Systems All systems reviewed & are unremarkable except as noted in HPI & below Physical Exam 2 Vital Signs (Past 24 Hours): Last Vital Signs Temp 36.7 C 09/28/18 11:46 Pulse 71 09/28/18 11:46 Resp 16 09/28/18 11:46 BP 129/68 09/28/18 11:46 Pulse Ox 97 09/28/18 11:46 Physical Exam: General: NAD, AAO x3, well nourished. Obese. HEENT: Normocephalic. Atraumatic. Conjunctiva pink, no scleral icterus. Neck: No carotid bruits, the carotid upstrokes are brisk. No JVD. No HJR Heart: Regular normal S-1 and S-2 no S-3 or S-4 gallop. No murmurs or rub appreciated. PMI is not displaced. No RV heave. Lungs: Clear bilateral without rales , rhonchi, or wheeze. Abdomen: Normal bowel sounds. Soft. Nontender. No masses or organomegaly. No abdominal bruits. Extremities: No ecchymosis or hematoma. No clubbing, cyanosis, or edema. Pulses: radial=2/4, Dorsalis pedis =2/4, posterior tibial=2/4. Neuro: Cranial nerves grossly intact. No focal motor deficit.
--- NOTE | 2018-09-28 14:18 | Hospitalist Progress Note ---
Date of Service September 28, 2018 Assessment & Plan (1) Atrial flutter with rapid ventricular response: Started on diltiazem drip. Converted to NSR. Seen in consultation by Cardiology. Diltiazem discontinued. EPS with ablation performed by Dr. Church 09/27/18. Continue metoprolol. Continue anticoagulation with apixaban. (2) Asthma: Pulmonary status stable. (3) Seizure disorder: Stable. Continue divalproex. (4) DVT prophylaxis: Receiving apixaban for atrial flutter. Ambulate. (5) Discharge planning issues: Discharge to home. Family Medicine follow-up with Dr. Redman. Cardiology follow-up with [facility]. Subjective Recheck for atrial flutter and other problems. EPS with ablation performed yesterday by Dr. Church. Doing well. Remains in NSR. No chest pain, palpitations, SOB, edema. No fever. No wheezing or SOB. No nausea, vomiting. Physical Exam 2 Vital Signs (Past 24 Hours): Last Vital Signs Temp 36.7 C 09/28/18 11:46 Pulse 71 09/28/18 11:46 Resp 16 09/28/18 11:46 BP 129/68 09/28/18 11:46 Pulse Ox 97 09/28/18 11:46 Constitutional: no acute distress Respiratory: no respiratory distress Auscultation: lungs clear to auscultation bilaterally Cardiovascular: Rate/Rhythm: regular rate and regular rhythm Heart Sounds: no gallop, no murmur and no cardiac rub Vessels: no JVD Extremities: no calf tenderness and no edema Gastrointestinal (Abdomen): normal bowel sounds, soft, nontender, no hepatosplenomegaly Musculoskeletal: no hematoma right groin Skin: no rashes, warm and dry Psychiatric: Orientation: alert and oriented x 3
--- NOTE | 2018-10-04 09:12 | Discharge Summary ---
Date of Service Date of admission: 09/24/18 Date of discharge: 09/28/18 Admission HPI Per Admitting Provider This 58-year-old female with past medical history significant for mild intermittent asthma, recently treated for bronchitis, still has mild cough. She was recently in the hospital and found to be in rapid atrial flutter. There is a plan for ablation, but patient converted spontaneously to sinus rhythm and discharged on Eliquis and metoprolol. History of obesity, reflux esophagitis, and history of epilepsy. Comes back with rapid atrial flutter. She does not feel any flutter. Denies any chest pain, no shortness of breath. Still has mild cough, no headache, no dizziness, no earaches, no runny nose, no sore throat, no difficulty swallowing. No nausea, no abdominal pain. Normal bowel and bladder movements. No blood in the urine. No blood in the stools. Her PCP has given her heart monitor and told to check before she works out. Before she went to gym, she checked and heart rate was in the 140s, so she went to PCP and advised to come to the ER. Currently, started on Cardizem dripin Er and heart rate in the 90s, resting comfortably. Admission Exam Per Admitting Provider GENERAL: The patient is obese, not in acute distress. VITAL SIGNS: Temperature 36.8, pulse when she came in was in the 140s and currently 90s, blood pressure 150/92, oxygen 96% room air. HEENT: No pallor, no icterus. Pupils equal, round, and reactive to light. NECK: No JVD, no neck masses, no carotid bruits. CARDIOVASCULAR: S1, S2 heard. Irregular rhythm. No murmurs. RESPIRATORY SYSTEM: Normal AP diameter. No accessory muscle use. No wheezing, no crackles. ABDOMEN: Soft, bowel sounds present. Nontender. No distention. CENTRAL NERVOUS SYSTEM: Cranial nerves II-XII grossly intact. Nonfocal. EXTREMITIES: No edema, no erythema. Principal Diagnosis atrial flutter with rapid ventricular response Discharge Data Allergies Allergy/AdvReac Type Severity Reaction Status Date / Time pseudoephedrine Allergy Mild HYPERVENTIL Verified 09/17/18 11:24 ATE triprolidine Allergy Mild HYPERVENTIL Verified 09/17/18 11:24 ATE levofloxacin Allergy Unknown SWELLING, Verified 09/17/18 11:24 JOINT PAIN oxycodone Allergy Unknown HAD Verified 09/17/18 11:24 "WITHDRAWL" WHEN STOPPED adhesive AdvReac Mild Redness of Verified 09/20/18 06:57 Skin - Bandaids adhesive tape AdvReac Mild Redness of Verified 09/20/18 06:58 Skin albuterol AdvReac Unknown JITTER, Verified 09/17/18 11:24 RAPID HEART RATE morphine AdvReac Unknown SEE NOTES Verified 09/17/18 11:24 Consultations 09/24/18 19:15 ED Decision to Admit Stat 09/25/18 08:00 Consult Cardiology Routine Procedures Performed Operation Date: 09/27/18 10:00 Actual Procedures p EPS + Ablation for SVT Flutter - Pa Church MD s Ultrasound Vascular Access - Pa Church MD Ordered Studies 09/27/18 10:45 EP Lab Images for PACS ONCE Hospital Course (1) Atrial flutter with rapid ventricular response: Presented with atrial flutter with RVR. Started on diltiazem drip and converted to NSR. Seen in consultation by Cardiology. Diltiazem discontinued. EPS with ablation performed by Dr. Church 09/27/18 with good results. Continue metoprolol for now. Continue anticoagulation with apixaban. (2) Asthma: Pulmonary status stable. (3) Seizure disorder: Stable. Continue divalproex. (4) DVT prophylaxis: Receiving apixaban for atrial flutter. Ambulate. (5) Discharge planning issues: Discharge to home. Family Medicine follow-up with Dr. Redman. Cardiology follow-up with [facility]. Total Time Total Time Spent Total Time Spent (In Minutes): 35 Discharge Plan Discharge Items Patient Disposition: Home - Self-Care Reason For Visit: atrial flutter Discharge Diagnosis: atrial flutter Condition: Good Discharge Goals: Improve disease control Activity: As commented below Lifting: No more than 10 pounds Lifting Comment: no lifting more than 10 lbs for 3 days Driving/Machine Use: Resume 3 days after discharge Non-emergency contact: Primary Care Provider, Hospitalist and Front Desk Call non-emergency contact if: you have any medication questions and your symptoms worsen Follow-up/Referrals: Pa Church MD [Front Desk] - (In 4 weeks. Please contact his office for appointment.) Bebeto Matson DO [Front Desk] - (10/20/2018 2:00 PM Bebeto Matson DO) Christine Redman MD [Primary Care Provider] - (10/04/2018 1:00 PM Christine Redman MD) Diet: Heart Healthy Addtl Provider Instructions: OTHER INSTRUCTIONS: Seek medical attention if you have: * temperature above 101 * chest pain or trouble breathing * abdominal pain, nausea, vomiting * diarrhea, dark stools or bloody stools * any unanswered questions or concerns Call 911 if symptoms are severe. Call if you have any questions or problems. My cell # is [phone]. You can also reach a [facility] hospitalist on duty at [facility] 24 hours a day by calling [phone]. Prescriptions: Continue divalproex [Depakote] 500 mg Tablet,Delayed Release (Dr/Ec) 500 mg PO TID RF: 0 levalbuterol tartrate [Xopenex HFA] 45 mcg/actuation Hfa Aerosol Inhaler 2 puff INHALATION UD PRN (Reason: CHEST CONGESTION) RF: 0 pantoprazole 40 mg tablet,delayed release (DR/EC) 40 mg PO QAM PRN (Reason: Acid Reflux) RF: 0 metoprolol tartrate 25 mg Tablet 25 mg PO BID 30 Days Qty: 60 RF: 0 apixaban [Eliquis] 5 mg Tablet 5 mg PO BID 30 Days Qty: 60 RF: 0 Stand-Alone Forms: My [facility] Discharge Orders: Discharge Order (Routine); Ordered 09/28/18 Ordered By: Vasu Cervantes Admission Data Admit Date/Time: 09/24/18 21:31 Attending Provider: Vasu Cervantes Admit Provider: Maurice England Primary Care Provider: Christine Redman Other Providers: John Fallon Service: Telemetry Other Interventions: Discharge Summary Assessment (RN) Last Done: 09/28/18 14:47 DC Date/Time DO NOT enter until pt leaves facility: 09/28/18 15:15
--- NOTE | 2018-10-24 16:28 | Procedure Note ---
Procedure Note Date of Service September 28, 2018 Note Procedure performed: Ablation of atrial flutter, complete electrophysiologic testing including arrhythmia induction, mapping of tachycardia sites using roving catheter, ultrasound-guided vascular access The patient was informed of the risks benefits and alternatives to the intended procedure. He understood such which proceed. He is brought to the electrophysiology suite in a fasting state. Conscious sedation was administered per protocol and the patient was monitored electrocardiographically throughout today's procedure. The right groin and right neck areas were prepped and draped in the usual sterile fashion the right internal jugular vein was subsequently access using modified Seldinger technique under ultrasound guidance and a 6 Irish venous sheath was placed at the site over guidewire. Right femoral vein was accessed 3 times using modified Seldinger technique and sheaths were placed over guidewires at this site. The sheaths were used to facilitate passage of the EP catheters to the respective chambers under fluoroscopic guidance. This included right ventricular, coronary sinus and his bundle catheters. The patient's baseline conduction system was characterized. This point standard pacing maneuvers were employed in order to induce an arrhythmia. Once the arrhythmia was induced the nature of the arrhythmia was characterized. Once these elements were known ablation catheter was advanced to the area of interest in tachycardia sites mapped radiofrequency lesions were placed with good power and temperature and so the tachycardia was no longer inducible. Subsequent to ablation the patient' s baseline conduction intervals were again measured. Repeat electrophysiologic testing and arrhythmia induction was then performed on and off isoproterenol prior to conclusion of the case. At the conclusion of the procedure the sheaths and catheters were removed. Hemostasis was achieved at the access sites using manual pressure. Patient tolerated the procedure well there were no immediate complications. Findings: Successful creation of bidirectional block through the caval tricuspid isthmus Baseline intracardiac intervals Cycle length in the atrium 880 milliseconds Cycle length in the ventricle 862 milliseconds AR interval 162 milliseconds QRS duration 90 milliseconds QT interval 420 milliseconds Corrected QT interval 461 milliseconds AH interval 92 milliseconds HV interval 40 milliseconds Av Wenckebach occurred at 310 milliseconds The effective refractory period of the AV node was less than 230 milliseconds Retrograde AV chavez conduction block at 210 milliseconds Ablation: The patient presented to the EP suite in sinus rhythm. Radiofrequency ablation was performed through the caval tricuspid isthmus. Standard pacing maneuvers were employed in order to confirm bidirectional block through the caval tricuspid isthmus. Attempted arrhythmia induction including burst atrial pacing down to cycle length of 240 milliseconds were performed from both the lateral and medial aspects of the caval tricuspid isthmus. Post ablation intervals: At the conclusion of the procedure there was no inducible tachycardia. Impression: Successful creation of bidirectional block through the caval tricuspid isthmus rendering typical right atrial flutter noninducible No evidence of dual AV chavez physiology Normal baseline conduction intervals
== END 2018-09-28 15:15 | disposition home or self-care (01) | DRG 274 ==
LOC: ED 16:42 → 2S 21:31
DX: I48.92 Unspecified atrial flutter; E66.01 Morbid (severe) obesity due to excess calories; G40.909 Epilepsy, unspecified, not intractable, without status epilepticus; Z79.01 Long term (current) use of anticoagulants; K21.9 Gastro-esophageal reflux disease without esophagitis; Z79.899 Other long term (current) drug therapy; Z68.41 Body mass index [BMI] 40.0-44.9, adult

== ENCOUNTER 2024-11-08 19:37 | Observation (INO) ==
--- NOTE | 2024-11-08 19:58 | Emergency Department Note ---
Impression & Plan Precordial chest pain, Exertional chest pain, Atrial fibrillation ED Provider Note NAME: BERONICA JACOBSON AGE: 64 SEX: F : 1960 ARRIVES VIA: Ambulance INFORMANT: [Patient] ED PROVIDER(S): [Miguel Macias MD] CHIEF COMPLAINT: Chest pain HISTORY OF PRESENT ILLNESS: The patient is a 64-year-old female who was in the ED 3 days ago with rapid A- fib. She did convert to sinus rhythm and, at discharge, was placed on Toprol as well as Eliquis. The patient states that at work today, she felt a bit lightheaded. When she returned home, she was walking and developed some pressure/tightness across her chest. This persisted for maybe 15 or 20 minutes and then resolved. Because of how she had felt, she did speak with 911, she was brought to the hospital for evaluation. She is currently asymptomatic. No medication given in route. The patient has no history of previous TN. She does not believe she has ever had a stress test. When she was having chest tightness, she cannot recall having jaw or left arm pain. She did feel that resting made things better. PMHx/PSHx/Social Hx: See Below PHYSICAL EXAM: GENERAL: Patient is in no acute distress. HEENT: No acute trauma, normocephalic atraumatic, mucous membranes moist, no nasal congestion. NECK: No stridor, no adenopathy, no meningismus, trachea is midline. LUNGS: Clear to auscultation bilaterally, no wheeze, no rhonchi, breath sounds equal. HEART: 2 over 6 systolic murmur, rhythm seems regular with an occasional extra beat. ABDOMEN: Soft, nontender, no peritonitis. EXTREMITIES: No cyanosis, full range of motion of all the joints without pain or difficulty. Mild bilateral pedal edema. NEUROLOGIC: Oriented x 3, no acute motor or sensory deficits, no focal weakness. SKIN: No jaundice, no diaphoresis. DIFFERENTIAL DIAGNOSIS: Cardiac ischemia, TN, medication reaction, dysrhythmia, anemia, among others. EMERGENCY DEPARTMENT PROCEDURES: MEDICAL DECISION MAKING: There is no leukocytosis or concerning anemia. There is a normal platelet count. No coagulopathy. No renal failure or significant electrolyte abnormality. No concerning liver enzyme elevation. No evidence for pancreatitis. ECG shows a sinus rhythm with some PVCs, no obvious ST elevation. Cardiac enzyme testing x 1 is not consistent with acute cardiac injury. Chest x-ray does not show CHF or pneumonia. On exam, the patient was without chest pain, she was resting comfortably. Her pain had resolved prior to arrival. Patient was given oral aspirin for cardioprotective purposes. The patient presents with exertional chest pain. She was just in our hospital a few days ago for a rapid A-fib. Given the circumstances, given her complaints, I do think a hospital stay for further cardiac workup would be warranted. She may benefit from a stress test and cardiology consultation. I spoke with the patient and case management, the on-call hospitalist was consulted. Prior/Outside records/notes reviewed: Today's EMS notes describing her presentation and transport to this hospital. ECG per my interpretation: Indication was chest pain. The ECG shows a sinus rhythm with an occasional PVC. There is an incomplete right bundle branch block. The rate is 71. There is no acute ST elevation. QTc was 445. Continuous Cardiac Monitoring per my interpretation: An order was placed for continuous cardiac monitoring. The monitor shows a rate of 71 with sinus rhythm with PVCs. Imaging/x-ray results per my interpretation: Chest x-ray shows some mild cardiomegaly, no focal pneumonia. No CHF. Chronic Medical/Social conditions affecting care: History of Eliquis use. Care/Management discussed with: Case management, the on-call hospitalist. Level of care consideration(s): After review of the information above and other included data: --I believe the patient requires escalation of care to admission DISPOSITION: Admission Past Med/Surg History Problem List (Updated 11/08/24 @ 21:50 by Miguel Macias MD) Atrial fibrillation (Acute) Exertional chest pain (Acute) Precordial chest pain (Acute) Atrial fibrillation with RVR (Acute) Gastroenteritis (Acute) Diarrhea (Acute) Nausea & vomiting (Acute) Status post total shoulder arthroplasty (~07/2024) Morbid obesity Tendonitis of left rotator cuff Medical History Sleep apnea unable to tolerate the device, has since dx lost over 80lbs History of COVID-19 (~02/2024) x3, most recent 02/2024>"feels like sometimes if she gets a cough, the cough is different than in the past and has throat tightness" History of diverticulitis last flare approx. 5 years ago Osteoarthritis Atrial flutter f/u dr. hudson, [facility] cardiology Asthma stable, rare use of rescue inh History of kidney stones no sx Acid reflux controlled, stable per pt History of seizures last seizure 2004 Surgical History History of esophagogastroduodenoscopy (EGD) Hx of tonsillectomy History of total right knee replacement Family history of reaction to anesthesia mother>nausea and slow to wake up History of total shoulder replacement right History of cardiac radiofrequency ablation 08/2018 [facility] History of arthroscopy of right knee X3 History of arthroscopy of right shoulder X3 History of arthroscopy of left shoulder History of colonoscopy History of ankle surgery left Family History Father Family history of bladder cancer Social History Smoking Status: Never smoker Second Hand Exposure: Yes (hx growing up); Do You Dip or Chew Tobacco: No; Hx Alcohol Use: Yes Alcohol type: beer and wine Hx Substance Use: No Preferred Language: Lithuanian Communication Ability: Effective Conservation Or Heritage Architect Required: No Beliefs That Will Affect Care: None marital status: / Current Living Situation: Family Current Living Situation Comment: LIVES WITH SON Feels Safe at Home: Yes Assistive Devices: Other Allergies Allergies Allergy/AdvReac Type Severity Reaction Status Date / Time oxycodone Allergy Intermediate HAD Verified 11/08/24 20:52 "WITHDRAWL" WHEN STOPPED pseudoephedrine AdvReac Severe HYPERVENTIL Verified 11/08/24 20:52 ATE triprolidine AdvReac Severe HYPERVENTIL Verified 11/08/24 20:52 ATE albuterol AdvReac Intermediate JITTER, Verified 11/08/24 20:52 RAPID HEART RATE levofloxacin AdvReac Intermediate SWELLING, Verified 11/08/24 20:52 JOINT PAIN morphine AdvReac Intermediate SEE NOTES Verified 11/08/24 20:52 adhesive AdvReac Mild Redness of Verified 11/08/24 20:52 Skin - Bandaids adhesive tape AdvReac Mild Redness of Verified 11/08/24 20:52 Skin Home Meds Home Medications Medication Instructions Recorded Confirmed divalproex 500 mg tablet,delayed 500 mg PO TID 11/06/24 11/08/24 release ascorbic acid 1,000 1 ea PO DIRECTED PRN Cold 11/08/24 11/08/24 [id number] powder Symptoms effervescent pack (Emergen-C) omeprazole 20 mg capsule,delayed 20 mg PO DAILY 11/08/24 11/08/24 release Previous Rx's Medication Instructions Recorded apixaban 5 mg tablet (Eliquis) 5 mg PO BID #60 tabs 11/06/24 metoprolol succinate 25 mg 25 mg PO DAILY #30 tabs 11/06/24 tablet,extended release 24 hr (Toprol XL) ondansetron 4 mg disintegrating 4 mg PO Q8H PRN nausea and 11/06/24 tablet vomiting #30 tabs Results & Data (ED) Vital Signs Vital Signs - 24 hr 11/08/24 19:44 11/08/24 19:44 11/08/24 19:48 Temperature 36.8 C Temperature Source Oral Pulse Rate 69 71 Respiratory Rate 18 Respiratory Effort / Characteristics Non-Labored Spontaneous Respiratory Depth Normal Blood Pressure 152/86 H Blood Pressure Mean 108 Pulse Oximetry 96 96 Oxygen Delivery Method Room Air Room Air Sepsis Recent Fever Within 48 Hours No Sepsis New/Unexplained Change in Mental Status No Sepsis Action Taken by Nursing No Action Required Home Medications Current Medication List: was personally reviewed by me Laboratory Data Attestation: I reviewed the patient's lab results. 11/08/24 19:48 11/08/24 19:48 Lab Results 11/08/24 Range/Units 19:48 WBC 6.73 (4.8-10.8) K/ul RBC 4.76 (4.20-5.40) M/uL Hgb 13.0 (12.0-16.0) g/dl Hct 40.8 (37.0-47.0) % MCV 85.7 (80.0-100.0) fL MCH 27.3 (25.0-34.0) pg MCHC 31.9 L (32.0-36.0) g/dL RDW Std Deviation 47.5 H (36.4-46.3) fL RDW Coeff of Artemio 15.1 H (11.5-14.5) % Plt Count 195 (130-400) K/uL MPV 11.3 (9.4-12.4) fL Immature Gran % (Auto) 0.1 % Neut % (Auto) 42.6 % Lymph % (Auto) 46.8 % [place] % (Auto) 8.9 % Eos % (Auto) 1.2 % Baso % (Auto) 0.4 % Neut # (Auto) 2.86 (1.40-6.50) K/uL Lymph # (Auto) 3.15 (1.20-3.40) K/uL [place] # (Auto) 0.60 H (0.11-0.59) K/uL Eos # (Auto) 0.08 (0.00-0.50) K/uL Baso # (Auto) 0.03 (0.00-0.20) K/uL Immature Gran # (Auto) 0.01 (0.01-0.20) K/uL PT 11.6 (9.0-12.0) Seconds INR 1.1 (0.9-1.1) APTT 27 (21-31) Seconds PTT Ratio 1.0 Sodium 138 (136-145) mmol/L Potassium 4.2 (3.5-5.1) mmol/L Chloride 102 (98-107) mmol/L Carbon Dioxide 31 (21-32) mmol/L Anion Gap 5 (3-11) BUN 16 (6-23) mg/dl Creatinine 0.73 (0.6-1.2) mg/dl Est Cr Clr Drug Dosing 122.3 ml/min eGFR 92.93 BUN/Creatinine Ratio 21.9 H (10-20) Glucose 94 (70-99(Fasting)) mg/dl Calcium 9.5 (8.6-10.3) mg/dl Total Bilirubin 0.3 (0.2-1.0) mg/dl AST 23 (13-39) U/L ALT 18 (7-52) U/L Alkaline Phosphatase 70 (34-104) U/L Troponin I High Sens 2.6 (0-14) pg/ml Total Protein 6.6 (6.0-8.3) gm/dl Albumin 4.1 (3.4-5.0) gm/dl Globulin 2.5 (2.5-4.0) gm/dl Albumin/Globulin Ratio 1.6 (0.9-2) Lipase 68 (11-82) U/L Administered Medications Discontinued Medications Aspirin (Aspirin Chew 324 Mg) 324 mg PO NOW STA Stop: 11/08/24 20:36 Last Admin: 11/08/24 20:40 Dose: 324 mg Documented By: SHAUN Discharge Plan Visit Data Chief Complaint: Chest Pain Stated Complaint: CHEST PAIN ED Provider: Miguel Macias Discharge Problem: Precordial chest pain, Exertional chest pain, Atrial fibrillation Patient Disposition: Admitted As Inpatient Condition: Good Forms Stand Alone Forms: [facility] Prescriptions Prescriptions: No Action Emergen-C 1,000 mg Powder Effervescent In Packet 1 ea PO DIRECTED PRN (Reason: Cold Symptoms) omeprazole 20 mg capsule,delayed release(DR/EC) 20 mg PO DAILY divalproex 500 mg tablet,delayed release (DR/EC) 500 mg PO TID Eliquis 5 mg tablet 5 mg PO BID Qty: 60 0RF metoprolol succinate [Toprol XL] 25 mg tablet extended release 24 hr 25 mg PO DAILY Qty: 30 0RF ondansetron 4 mg tablet,disintegrating 4 mg PO Q8H PRN (Reason: nausea and vomiting) Qty: 30 0RF Referrals Referrals: Rosetta Escamilla MD [Primary Care Provider] - Discharge Problem: Atrial fibrillation Qualifiers: Atrial fibrillation type: paroxysmal Qualified Code(s): I48.0 - Paroxysmal atrial fibrillation
[2024-11-08 20:07] LABS: Basophils # (auto) 0.03 K/uL (0.00-0.20); Basophils % (auto) 0.4 %; Eosinophils # (auto) 0.08 K/uL (0.00-0.50); Eosinophils % (auto) 1.2 %; Hematocrit (blood only) 40.8 % (37.0-47.0); Immature Granulocytes # (auto) 0.01 K/uL (0.01-0.20); Immature Granulocytes % (auto) 0.1 %; Lymphocytes # (auto) 3.15 K/uL (1.20-3.40); Lymphocytes % (auto) 46.8 %; Mean Corpuscular Hemoglobin 27.3 pg (25.0-34.0); Mean Corpuscular Hgb Conc 31.9 g/dL (32.0-36.0); Mean Corpuscular Volume 85.7 fL (80.0-100.0); Mean Platelet Volume 11.3 fL (9.4-12.4); Monocytes % (auto) 8.9 %; Neutrophils # (auto) 2.86 K/uL (1.40-6.50); Neutrophils % (auto) 42.6 %; Platelet Count 195 K/uL (130-400); RDW Coefficient of Variation 15.1 % (11.5-14.5); RDW Standard Deviation 47.5 fL (36.4-46.3); Red Blood Count 4.76 M/uL (4.20-5.40); White Blood Count 6.73 K/ul (4.8-10.8)
[2024-11-08 20:16] LABS: Albumin Globulin Ratio 1.6 (0.9-2); Albumin Level 4.1 gm/dl (3.4-5.0); BUN Creatinine Ratio 21.9 (10-20); Bilirubin,Total 0.3 mg/dl (0.2-1.0); Calcium 9.5 mg/dl (8.6-10.3); Creatinine Clr Calc Pharmacy 122.3 ml/min; Globulin 2.5 gm/dl (2.5-4.0); Potassium 4.2 mmol/L (3.5-5.1); Total Protein 6.6 gm/dl (6.0-8.3)
[2024-11-08 20:23] LABS: Troponin I High Sensitivity 2.6 pg/ml (0-14)
[2024-11-08 20:33] LABS: INR 1.1 (0.9-1.1); Partial Thromboplastin Time 27 Seconds (21-31); Prothrombin Time 11.6 Seconds (9.0-12.0)
[2024-11-08] MEDS: ASPIRIN CHEW 324 MG PO STA (20:40)
--- NOTE | 2024-11-08 21:25 | History & Physical Report ---
Date of Service Patient admitted November 09, 2024 Assessment & Plan (1) Chest pain: (2) Paroxysmal atrial flutter: (3) Paroxysmal atrial fibrillation: (4) History of seizures: Plan: HPI, ROS, FH, SH, PE completed by Evelyn Byrd PA-C Assessment and plan per Dr Payan. See addendum. History of Present Illness Chief Complaint: CP Primary Care Provider: Rosetta Escamilla MD Patient is 64-year-old female with PMH GERD, history of epilepsy, paroxysmal atrial flutter s/p ablation in 2019, presented to ER with complaint of chest pain today. Per review of outpatient note, patient seen at [facility] ER on 11/06/2024 for N/V/D and was found to be in rapid atrial fibrillation and patient given bolus Cardizem. Prior to Cardizem drip being started patient converted to sinus rhythm. Patient was started on metoprolol succinate 25 mg and started on Eliquis. Patient states overall improved GI symptoms with no further vomiting or diarrhea. Still some slight nausea and has decreased appetite. Went back to work today. States around 4pm today was walking when she had episode of chest pain described as sharp that lasted few seconds and self resolved. Denies noticing any palpitations, dizziness, diaphoresis. Around 6pm tonight walking when had anterior chest tightness that lasted approximately 20 minutes and self resolved. Denies overt SOB but states intermittent episodes of feeling like needs to take a deep breath. Has not noticed palpitations even when she was in rapid afib/aflutter in past. Patient reporting some generalized headache. She feels this is secondary to not eating much today. Denies history known CAD. Denies hematemesis, melena, hematochezia, dizziness, syncope, vision changes, neck pain, cough, sore throat, abdominal pain, paresthesias, weakness, extremity weakness, extremity edema, rashes, urinary symptoms. Allergies Allergy/AdvReac Type Severity Reaction Status Date / Time oxycodone Allergy Intermediate HAD Verified 11/08/24 20:52 "WITHDRAWL" WHEN STOPPED pseudoephedrine AdvReac Severe HYPERVENTIL Verified 11/08/24 20:52 ATE triprolidine AdvReac Severe HYPERVENTIL Verified 11/08/24 20:52 ATE albuterol AdvReac Intermediate JITTER, Verified 11/08/24 20:52 RAPID HEART RATE levofloxacin AdvReac Intermediate SWELLING, Verified 11/08/24 20:52 JOINT PAIN morphine AdvReac Intermediate SEE NOTES Verified 11/08/24 20:52 adhesive AdvReac Mild Redness of Verified 11/08/24 20:52 Skin - Bandaids adhesive tape AdvReac Mild Redness of Verified 11/08/24 20:52 Skin Home Medications Medication Instructions Recorded Confirmed Type apixaban 5 mg tablet (Eliquis) 5 mg PO BID #60 tabs 11/06/24 11/08/24 Rx divalproex 500 mg tablet,delayed 500 mg PO TID 11/06/24 11/08/24 History release metoprolol succinate 25 mg 25 mg PO DAILY #30 tabs 11/06/24 11/08/24 Rx tablet,extended release 24 hr (Toprol XL) ondansetron 4 mg disintegrating 4 mg PO Q8H PRN nausea and 11/06/24 11/08/24 Rx tablet vomiting #30 tabs ascorbic acid 1,000 1 ea PO DIRECTED PRN Cold 11/08/24 11/08/24 History bg-ngdrnkfugmmy-egoqszhh powder Symptoms effervescent pack (Emergen-C) omeprazole 20 mg capsule,delayed 20 mg PO DAILY 11/08/24 11/08/24 History release Past Med/Surg History Problem List (Updated 11/08/24 @ 22:06 by Evelyn Byrd PA-C) Paroxysmal atrial fibrillation Paroxysmal atrial flutter Chest pain Atrial fibrillation (Acute) Exertional chest pain (Acute) Precordial chest pain (Acute) Atrial fibrillation with RVR (Acute) Gastroenteritis (Acute) Diarrhea (Acute) Nausea & vomiting (Acute) Status post total shoulder arthroplasty (~07/2024) Morbid obesity Tendonitis of left rotator cuff Medical History Sleep apnea unable to tolerate the device, has since dx lost over 80lbs History of COVID-19 (~02/2024) x3, most recent 02/2024>"feels like sometimes if she gets a cough, the cough is different than in the past and has throat tightness" History of diverticulitis last flare approx. 5 years ago Osteoarthritis Atrial flutter f/u dr. hudson, [facility] cardiology Asthma stable, rare use of rescue inh History of kidney stones no sx Acid reflux controlled, stable per pt History of seizures last seizure 2004 Surgical History History of esophagogastroduodenoscopy (EGD) Hx of tonsillectomy History of total right knee replacement Family history of reaction to anesthesia mother>nausea and slow to wake up History of total shoulder replacement right History of cardiac radiofrequency ablation 08/2018 [facility] History of arthroscopy of right knee X3 History of arthroscopy of right shoulder X3 History of arthroscopy of left shoulder History of colonoscopy History of ankle surgery left Family History Father Family history of bladder cancer Social History Smoking Status: Never smoker Second Hand Exposure: Yes (hx growing up); Do You Dip or Chew Tobacco: No; Hx Alcohol Use: No Hx Substance Use: No Preferred Language: Gabonese Communication Ability: Effective Asbestos Microscopist Required: No Beliefs That Will Affect Care: None marital status: / Current Living Situation: Family Current Living Situation Comment: LIVES WITH SON Other Information That Helps Us Care for You: No Feels Safe at Home: Yes Safety Concerns: Feels Safe At This Time Assistive Devices: Glasses Review of Systems Review of Systems: All systems reviewed & are unremarkable except as noted in HPI & below Physical Exam Physical Exam: General: no distress, overweight female Head: normocephalic, atraumatic Eyes: conjunctiva non-injected, anicteric ENT: normal inspection external ears, nose, mucous membranes moist Neck: supple, trachea midline Lungs: clear, no respiratory distress, no wheezing/rhonchi/rales CV: RRR, no murmur, trace pretibial edema Abd: normal BS, soft, non-tender Ext: no cyanosis, no calf tenderness Neuro: A&O x 3, no focal deficits noted, normal affect Skin: warm, dry Results & Data Results & Data Vital Signs (Past 12 Hours) Vital Signs Temp Pulse Resp BP Pulse Ox O2 Del Method 11/08/24 19:48 96 Room Air 11/08/24 19:44 36.8 C 71 18 152/86 H 96 Room Air 11/08/24 19:44 69 Laboratory Results Short CBC 11/08/24 Range/Units 19:48 WBC 6.73 (4.8-10.8) K/ul Hgb 13.0 (12.0-16.0) g/dl Hct 40.8 (37.0-47.0) % Plt Count 195 (130-400) K/uL BMP 11/08/24 19:48 Sodium 138 Potassium 4.2 Chloride 102 Carbon Dioxide 31 BUN 16 Creatinine 0.73 Glucose 94 Calcium 9.5 Liver Function 11/08/24 Range/Units 19:48 Total Bilirubin 0.3 (0.2-1.0) mg/dl AST 23 (13-39) U/L ALT 18 (7-52) U/L Alkaline Phosphatase 70 (34-104) U/L Albumin 4.1 (3.4-5.0) gm/dl Supervising Physician Co-Signing Physician Notes IM ATTENDING : Patient seen and examined. History obtained from patient and records. Concur with salient points upon review of preceding documentation by Ms. Evelyn Byrd PA-C. In addition: CT head No evidence of acute intracranial pathology. I take responsibility for plan of care below. FINAL ASSESSMENT AND PLAN as follows : Atypical chest pain Recent viral gastroenteritis Hx PAF/PAFl status post ablation on Eliquis Valvular heart disease (mild MR, mitral valve prolapse 2021) Seizure disorder stable on Depakote Past tobacco abuse OBS Admit to PCU Update TTE, cardiology consult re: atypical chest pain DVT prophylaxis. Eliquis Full code I spent a total of 30 minutes coordinating, documenting, and providing care for this patientexcludingtime spent by another provider/QHP.
--- NOTE | 2024-11-08 22:09 | XRay Report ---
Exam(s): XR CXR 1 VIEW EXAM: XR Chest, 1 View CLINICAL HISTORY: Reason for exam: Chest pain, nonspecific. TECHNIQUE: Frontal view of the chest. COMPARISON: 11/06/2024 FINDINGS: Lungs: No consolidation. No overt edema. Pleural space: No pleural effusion. No pneumothorax. Heart: Unremarkable. No cardiomegaly. IMPRESSION: No acute cardiopulmonary abnormality. Electronically signed by: Jeff Rhodes MD 11/08/24 22:08 PM
[2024-11-08] MEDS: ACETAMINOPHEN 500 MG TAB PO STA (22:14)
[2024-11-08] MEDS ORDERED: NITROGLYCERIN SL 0.4 MG/TAB TAB SL PRN (22:55)
[2024-11-08 23:42] LABS: Magnesium 1.9 mg/dl (1.7-2.4)
[2024-11-08 23:49] LABS: Troponin I High Sensitivity 3.1 pg/ml (0-14)
--- NOTE | 2024-11-09 01:04 | CT Scan Report ---
Exam(s): CT HEAD Without Contrast EXAM: CT Head Without Intravenous Contrast CLINICAL HISTORY: Reason for exam: montes, noac. TECHNIQUE: Axial computed tomography images of the head/brain without intravenous contrast. CTDI is 49.19 mGy and DLP is 800.63 mGy-cm. Automated exposure control was utilized for the study. A dose lowering technique was utilized adhering to the principles of ALARA. COMPARISON: No relevant prior studies available. FINDINGS: Brain: Unremarkable. No hemorrhage. No significant white matter disease. No edema. Ventricles: Unremarkable. No ventriculomegaly. Bones/joints: Unremarkable. No acute fracture. Soft tissues: Unremarkable. Sinuses: Unremarkable as visualized. No acute sinusitis. Mastoid air cells: Unremarkable as visualized. No mastoid effusion. IMPRESSION: No evidence of acute intracranial pathology. Electronically signed by: Arabella Byrne MD 11/09/24 01:03 AM
[2024-11-09] MEDS ORDERED: LORazepam 0.5 MG TAB PO PRN (01:07)
[2024-11-09] MEDS ORDERED: HYDROCODONE/ACETAMOPHEN 5/325MG TAB PO PRN (01:07)
[2024-11-09] MEDS ORDERED: PROMETHAZINE 6.25 MG/50.25 ML BAG IV PRN (01:07)
--- OUTSIDE RECORDS SUMMARY | 2024-11-09 01:35 | External Medical Summary | Summary of Care ---
Author Name Unknown Organization [facility] [address] [address] Phone [phone] Care Team Providers Care Biochemical Development Engineer Name Role Phone Cheli Escamilla MD Primary Care Provider Reason for Visit * Reason Comments eRx-Medication Refill Encounter Details Date Type Department Care Team (Late st Contact Info) Description 11/06/2024 Refill [facility] Practice [facility] [address] [facility] [facility] [place] [id number] Cheli Escamilla MD [address] [facility] [place] [id number] History of peptic ulcer disease; RUQ pain Allergies Active Allergy Reactions Criticality Noted Date Comments Triprolidine-Pse Other (Please comment) 04/09/2011 Causes hyperventilation Adhesive Tape Low 11/26/2018 Other reaction(s): Redness of Skin - Bandaids Albuterol Other (Please comment) High 10/10/2011 Very tremulous Codeine 04/19/2010 Hallucination, but has tolerated sm amts in cough medicine Levofloxacin Abdominal pain 02/04/2010 Arthritis of knees and yeast infection Morphine And Codeine 01/25/1999 odd feeling in head, no rash or SOB Pseudoephedrine Hcl 04/19/2010 Extreme dry mouth documented as of this encounter (statuses as of 11/08/2024) Medications Vitamin D 125 MCG (5000 UT) Oral Capsule Take by mouth. Ac tive B-12 2000 MCG Oral Tablet Take by mouth. Act octavio Levalbuterol Tartrate 45 MCG/ACT Inhalation Aerosol (Xopenex HFA) Inhale by mouth 2 Puffs every 4 hours as needed for Wheezing. 15 g 2 04/09/20 22 Active Elderberry 500 MG Oral Capsule Take by mouth . Active Amoxicillin 500 MG Oral Capsule (Amoxil) 07/01/20 22 Active Misc. 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 1 hour before the first meal of the day. 30 Capsule 5 11/09/19 25 Active Omeprazole 20 MG Oral Capsule Delayed Release (PriLOSEC)Indica tions:History of peptic ulcer disease,RUQ pain Take 1 Capsule by mouth in the morning. 1 hour before the first meal of the day. 30 Capsule 2 07/26/20 24 2024 Discontinued documented as of this encounter (statuses as of 11/08/2024) Active Problems Problem Noted Date Diagnosed Date Venous insufficiency 05/04/2024 Varicose veins of leg with complications 024 Pain of left lower extremity 03/30/2024 Varicose veins of left lower extremity 4 Gastro-esophageal reflux disease without esophag itis 11/14/2021 History of motion sickness 11/14/2021 Adenomatous polyp of sigmoid colon 08/15/2021 Overview (05/22/2022): Last colonoscopy 2018, repeat 5 years Diverticulosis of large intestine with hemorrhag e 08/15/2021 Atypical glandular cells of undetermined significance (JOANNE) on cervical Pap smear 08/15/2021 SHILPA (obstructive sleep apnea) 12/20/2018 Overview (12/20/2018): moderate PAF (paroxysmal atrial fibrillation) 11/15/2018 Atrial flutter 09/17/2018 Mild intermittent asthma with exacerbation 11/16 DISH (diffuse idiopathic skeletal hyperostosis) 04/26/2013 Family history of ischemic heart disease 005 Overview (11/22/2015): ICD-10 update of inactive term EPILEPSY;NONCONV,W/O INTRACTABLE Mitral valve disorder Reflux esophagitis documented as of this encounter (statuses as of 11/08/2024) Resolved Problems Problem Noted Date Diagnosed Date Resolved Date COVID-19 virus infection 04/09/2022 Body mass index (BMI) of 40. 0 to 44.9 in adult 03/10/2022 03/30/2024 Overview: Per Obesity protocol - Per Obesity protocol - 335 lbs Body mass index (BMI) of 45. 0 to 49.9 in adult 10/08/2020 03/13/2022 Overview: Per Obesity protocol - 335 lbs Typical atrial flutter 10/19/201908/15 Preoperative cardiovascular examination 11/15/2018 05/30/2024 Body mass index (BMI) of 40. 0 to 44.9 in adult 06/07/2018 10/11/2020 Overview: Per Obesity protocol #1 - 335 lbs Obesity, Class III, BMI 40-4 9.9 (morbid obesity) 11/16/2017 11/21/2017 Vitamin D deficiency 09/03/2015 016 Overview (09/03/2015): Jul 2015 = 9. Start replacement and discuss with PCP. Edema 03/27/2014 04/22/2016 BMI 45.0-49.9, adult 02/11/2010 022 Overview (11/21/2017): 335 lbs ADVANCE DIRECTIVE INFORMATION 05/11/2007 07/04/2024 Overview (05/11/2007): Yes, Patient instructed to provide copy of advance directive for provider to review and to be scanned into Electronic Medical Record ADVANCE DIRECTIVE INFORMATION 02/23/2005 09/01/2006 Overview (02/23/2005): Yes, Patient instructed to provide copy of advance directive for provider to review and to be scanned into Electronic Medical Record OVERWEIGHT 06/02/2000 08/08/2008 BACKACHE NOS 06/02/2000 09/01/2006 Female infertility 05/28/2000 7 ACUTE BRONCHITIS 04/16/2000 09/01/2006 ROTATOR CUFF SYND NOS 01/25/19992006 Calculus of ureter 6 Peptic ulcer 04/22/2016 documented as of this encounter (statuses as of 11/08/2024) Immunizations Name Administration Dates Next Due COVID-19 mRNA, LNP-s, No Pre serve, 2-Dose Series (Pfizer) 08/17/2021,12/27/2020,12/06/2020 PPD 08/08/2013,12/15/2011 Pneumococcal Conjugate Vacci ne, 20-valent ([id number]) 05/25/2023 Pneumococcal Polysaccharide PPV23 (Pneumovax) 10/19/2020 Seasonal Influenza Vac., MDV , IM, 0.5 mL (Fluzone) 05/09/2014,08/13/2013,05/13/2012,06/01,06/25/2010,05/30/2008,06/08/20 07,06/26/2006,06/26/2006 08/13/2014 Seasonal Influenza, PF, 6 M & above, IM , (FluLaval or Fluzone) 05/25/2023,07/11/2022,08/15/2021,07/02,06/08/2017 Seasonal Influenza, Quadriva lent, No Preserve, IM 07/18/2015 Seasonal Influenza, Trivalen t, (IIV3), PF, (Fluzone) 05/30/2024 TDAP (age 10 and older)(Boostrix) 10/19/2020 TDAP, Age 7 and older, IM (Adacel) 09/26/2008 documented as of this encounter Social History Tobacco Use Types Packs/Day Years Used Date Smoking Tobacco: Never Passive Smoke Exposure: Past Smokeless Tobacco: Never Comments:Both parents smoked when pt was child Alcohol Use Standard Drinks/Week Comments Yes 0 (1 standard drink = 0.6 oz pur e alcohol) RARE PHQ-2 Answer Date Recorded PHQ Adult Total Score 1 05/25/2023 Hunger Vital Sign Answer Date Recorded Within the past 12 months, y ou worried that your food would run out before you got the money to buy more. Never true 05/25/20 23 Within the past 12 months, t he food you bought just didn't last and you didn't have money to get more. Never true 05/25/2023 Childcare Answer Date Recorded Do you feel overwhelmed with taking care of a child, family member or friend? No 05/25/2023 Does your family need help f inding childcare? (Household - for ages 0-17 years) Not on file 05/25/2023 Clothing Answer Date Recorded Have you been unable to get clothing when it was really needed? No 05/25/2023 Is your family able to get c lothes or diapers when needed? (Household - for ages 0-17 years) Not on file 05/25/2023 Personal Safety Answer Date Recorded Do you feel unsafe or have concerns for your saf ety? No 05/25/2023 Do you have concerns for you r family's safety? (Household - for ages 0-17 years) Not on file 05/25/2023 Utilities Answer Date Recorded Do you have trouble paying y our heating, water, or electric bill? (Adult - for ages 18 years and over) Not on file 05/30/2024 Is your family able to pay t he heat, water, or electric bill? (Household - for ages 0-17 years) Not on file 05/30/2024 Does your family have access to good internet? (Household - for ages 0-17 years) Not on file 05/30/2024 Employment Status Answer Date Recorded Are you unemployed or without regular income? No 05/25/2023 Does the household have a re gular source of income? (Household - for ages 0-17 years) Not on file 05/25/2023 Social Connections Answer Date Recorded How often do you feel lonely or isolated from those around you? (Adult - for ages 18 years and over) Not on file 05/30/2024 Financial Resource Strain Answer Date R ecorded Do you have any trouble payi ng for your medications, or do you think you might in the future? No 05/25/2023 Does your family have troubl e paying for medicine? (Household - for ages 0-17 years) Not on file 05/25/2023 Transportation Needs Answer Date Record ed READ ONLY Do you have troubl e getting a ride to medical visits or work? Never True 05/25/2023 Does your family have a hard time getting a ride to doctors visits? (Household - for ages 0-17 years) Not on file 05/25/2023 Has lack of transportation k ept you from medical appointments, meetings, work, or from getting things needed for daily living? Check all that apply. (Adult - for ages 18 years and over) Not on file 05/25/2023 Do you (or your family) have trouble finding or paying for a ride (transportation)? (Household - for ages 0-17 years) Not on file 05/25/2023 Housing Stability Answer Date Recorded Do you currently live in a s helter or have no steady place to sleep at night? No 05/25/2023 READ ONLY Do you think you a re at risk of becoming homeless? No 05/25/2023 Does your family worry about paying for your home or becoming homeless? (Household - for ages 0-17 years) Not on file 0 05/25/2023 Are you homeless or worried that you might be in the future? (Adult - for ages 18 years and over) Not on file Are you (or your family) jose eless or worried that you might be in the future? (Household - for ages 0-17 years) Not on file Food Insecurity Answer Date Recorded Do you need food for this week? No 05/25/2023 Are you able to get enough f ood for your family? (Household - for ages 0-17 years) Not on file 05/25/2023 Does your family need food t his week? (Household - for ages 0-17 years) Not on file 05/25/2023 Do you always have enough fo od for your family? (Household - for ages 0-17 years) Not on file 05/25/2023 Comments No Sex and Gender Information Value Date Recorded Sex Assigned at Female 05/25/2023 1:49 PM EDT Legal Sex Female 5:44 AM EST Gender Identity Female 05/25/2023 1:49 PM EDT Sexual Orientation Straight 05/25/2023 1: 49 PM EDT documented as of this encounter Miscellaneous Notes * Telephone Encounter - Naren Gonzales RPh - 11/08/2024 9:56 AM EDTSigned Prescriptions: Disp Refills Omeprazole 20 MG Oral Capsule Delayed Rele*30 Cap*5 Sig: Take 1 Capsule by mouth in the morning. 1 hour before the first meal of the day.Authorizing Provider: CHELI ESCAMILLA User: NAREN GONZALES documented in this encounter Plan of Treatment Upcoming Encounters Date Type Department Care Team (Late st Contact Info) Description 11/14/2024 11:20 AM EDT Office Visit Family Practice [facility] [address] [place] [id number] Cheli Escamilla MD [address] [place] [address] 12/05/2024 3:00 PM EDT Office Visit Cardiology, [facility] [address] [place] [address] Bebeto Matson DO [address] [facility] [address] 12/15/2024 8:30 AM EDT Office Visit Cardiology, [facility] [address] [place] [address] Karlene Back PA-C [address] [place] [address] [place] [address] 06/05/2025 2:20 PM EDT Office Visit Family Practice [facility] [address] [place] [address] Cheli Escamilla MD [address] [facility] [address] 06/26/2025 11:20 AM EDT Office Visit Neurology [facility] [address] [facility] [place] [address] Vasu Lawrence MD [address] [facility] [place] [address] Scheduled Procedures Name Priority Associated Diagnoses Date/Ti me COLONOSCOPY FLEXIBLE PROXIMA L DIAGNOSTIC Recall History of colonic polyps Health Maintenance Due Date Last Done Comments HIV Screening 1977 Cologuard 2007 Fecal Occult Blood Test 2007 Sigmoidoscopy 2007 Zoster Vaccines (1 of 2) 2012 Colonoscopy 03/30/2024 03/30/2019, 03/02, 02/01/2013, Additional history exists Colorectal Cancer Screening 03/30/2024 COVID-19 Vaccine ( season) 2024 08/17/2021, 12/27/2020, 12/06/2020 Depression Screening 05/25/2024 05/25/2023, 11/17/19 18 PAP SMEAR-EVERY 3 YRS,AGES 18-100 09/20/2024 09/20/2021, 05/20/2019, 08/28/2015, Additional history exists Mammogram 12/10/2024 12/11/2023, 11/29, 12/05/2021, Additional history exists Diabetes Screening 06/20/2027 06/20/2024, 1 , 04/02/2023, Additional history exists Lipid Panel 03/30/2029 03/30/2024, 05/01, 09/20/2021, Additional history exists DTap/Tdap Vaccines (3 - Td or Tdap) 10/19/2030 10/19/2020, 09/26/2008, 10/10/1998 RETIRED - COLONOSCOPY-EVERY 5 YRS AGES 18-100 Discontinued 03/30/2019, 03/30/2019, 02/01/2013, Additional history exists Pneumococcal Vaccine: 50+ Years Completed 05/25/2023, 10/19/2020 Influenza Vaccine (FLU shot) Completed 05/30/2024, 05/25/2023, 07/11/2022, Additional history exists HPV (Gardasil) Vaccine Aged Out No lo nger eligible based on patient's age to complete this topic Hepatitis B Vaccine Aged Out No longe r eligible based on patient's age to complete this topic MENINGOCOCCAL (MENACTRA/MENVEO) Aged Out No longer eligible based on patient's age to complete this topic Meningitis B Vaccine (Bexsero/Trumemba) Aged Out No longer eligible based on patient's age to complete this topic documented as of this encounter Medical Devices Not on filedocumented as of this encounter Visit Diagnoses Diagnosis History of peptic ulcer disease Personal history of peptic ulcer disease RUQ pain Abdominal pain, right upper quadrant documented in this encounter Care Teams Biochemical Development Engineer Relationship Specialty Start Date End Date Cheli Escamilla MD [address] [place] [id number] PCP - General Internal Medicine 01/31/21 documented as of this encounter
[2024-11-09] MEDS: APIXABAN 5 MG TABLET PO SCH (01:46)
[2024-11-09] MEDS: SODIUM CHLORIDE 0.9% 1,000 ML IV ONE (01:46)
[2024-11-09] MEDS: DIVALPROEX DELAY RELEASE 500 MG TAB PO SCH (01:46)
[2024-11-09 02:27] VITALS: RESP 20
--- NOTE | 2024-11-09 03:30 | History & Physical Report ---
Date of Service November 09, 2024 Assessment & Plan (1) Chest pain: (2) Paroxysmal atrial flutter: (3) Paroxysmal atrial fibrillation: (4) History of seizures: Plan: HPI, ROS, FH, SH, PE completed by Evelyn Byrd PA-C Assessment and plan per Dr Payan. See addendum. History of Present Illness Primary Care Provider: Rosetta Escamilla MD Allergies Allergy/AdvReac Type Severity Reaction Status Date / Time oxycodone Allergy Intermediate HAD Verified 11/08/24 20:52 "WITHDRAWL" WHEN STOPPED pseudoephedrine AdvReac Severe HYPERVENTIL Verified 11/08/24 20:52 ATE triprolidine AdvReac Severe HYPERVENTIL Verified 11/08/24 20:52 ATE albuterol AdvReac Intermediate JITTER, Verified 11/08/24 20:52 RAPID HEART RATE levofloxacin AdvReac Intermediate SWELLING, Verified 11/08/24 20:52 JOINT PAIN morphine AdvReac Intermediate SEE NOTES Verified 11/08/24 20:52 adhesive AdvReac Mild Redness of Verified 11/08/24 20:52 Skin - Bandaids adhesive tape AdvReac Mild Redness of Verified 11/08/24 20:52 Skin Home Medications Medication Instructions Recorded Confirmed Type apixaban 5 mg tablet (Eliquis) 5 mg PO BID #60 tabs 11/06/24 11/08/24 Rx divalproex 500 mg tablet,delayed 500 mg PO TID 11/06/24 11/08/24 History release metoprolol succinate 25 mg 25 mg PO DAILY #30 tabs 11/06/24 11/08/24 Rx tablet,extended release 24 hr (Toprol XL) ondansetron 4 mg disintegrating 4 mg PO Q8H PRN nausea and 11/06/24 11/08/24 Rx tablet vomiting #30 tabs ascorbic acid 1,000 1 ea PO DIRECTED PRN Cold 11/08/24 11/08/24 History or-zapryrufabtv-whqwwnmc powder Symptoms effervescent pack (Emergen-C) omeprazole 20 mg capsule,delayed 20 mg PO DAILY 11/08/24 11/08/24 History release Past Med/Surg History Problem List (Updated 11/08/24 @ 22:06 by Evelyn Byrd PA-C) Paroxysmal atrial fibrillation Paroxysmal atrial flutter Chest pain Atrial fibrillation (Acute) Exertional chest pain (Acute) Precordial chest pain (Acute) Atrial fibrillation with RVR (Acute) Gastroenteritis (Acute) Diarrhea (Acute) Nausea & vomiting (Acute) Status post total shoulder arthroplasty (~07/2024) Morbid obesity Tendonitis of left rotator cuff Medical History Sleep apnea unable to tolerate the device, has since dx lost over 80lbs History of COVID-19 (~02/2024) x3, most recent 02/2024>"feels like sometimes if she gets a cough, the cough is different than in the past and has throat tightness" History of diverticulitis last flare approx. 5 years ago Osteoarthritis Atrial flutter f/u dr. hudson, [facility] cardiology Asthma stable, rare use of rescue inh History of kidney stones no sx Acid reflux controlled, stable per pt History of seizures last seizure 2004 Surgical History History of esophagogastroduodenoscopy (EGD) Hx of tonsillectomy History of total right knee replacement Family history of reaction to anesthesia mother>nausea and slow to wake up History of total shoulder replacement right History of cardiac radiofrequency ablation 08/2018 [facility] History of arthroscopy of right knee X3 History of arthroscopy of right shoulder X3 History of arthroscopy of left shoulder History of colonoscopy History of ankle surgery left Family History Father Family history of bladder cancer Social History Smoking Status: Never smoker Second Hand Exposure: Yes (hx growing up); Do You Dip or Chew Tobacco: No; Hx Alcohol Use: No Hx Substance Use: No Preferred Language: Irish Communication Ability: Effective 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 Beliefs That Will Affect Care: None marital status: / Current Living Situation: Family Current Living Situation Comment: LIVES WITH SON Other Information That Helps Us Care for You: No Feels Safe at Home: Yes Safety Concerns: Feels Safe At This Time Assistive Devices: Glasses Results & Data Results & Data Vital Signs (Past 12 Hours) Vital Signs Temp Pulse Pulse Resp BP BP Pulse Ox 11/09/24 00:33 57 L 16 104/53 L 91 11/09/24 00:00 66 21 115/57 L 92 11/08/24 23:47 68 11/08/24 23:33 69 23 116/55 L 96 11/08/24 23:30 65 18 116/55 L 98 11/08/24 22:17 61 18 123/66 96 11/08/24 19:48 96 11/08/24 19:44 36.8 C 71 18 152/86 H 96 11/08/24 19:44 69 O2 Del Method 11/09/24 00:33 11/09/24 00:00 11/08/24 23:47 11/08/24 23:33 11/08/24 23:30 11/08/24 22:17 Room Air 11/08/24 19:48 Room Air 11/08/24 19:44 Room Air 11/08/24 19:44
[2024-11-09 06:29] LABS: Hematocrit (blood only) 36.8 % (37.0-47.0); Hemoglobin 11.9 g/dl (12.0-16.0); Mean Corpuscular Hemoglobin 27.5 pg (25.0-34.0); Mean Corpuscular Hgb Conc 32.3 g/dL (32.0-36.0); Mean Platelet Volume 11.1 fL (9.4-12.4); Platelet Count 172 K/uL (130-400); RDW Coefficient of Variation 15.1 % (11.5-14.5); RDW Standard Deviation 46.9 fL (36.4-46.3); Red Blood Count 4.33 M/uL (4.20-5.40); White Blood Count 6.23 K/ul (4.8-10.8)
[2024-11-09 06:33] LABS: Anion Gap 3 (3-11); BUN Creatinine Ratio 23.6 (10-20); Blood Urea Nitrogen 17 mg/dl (6-23); C Reactive Protein < 0.50 mg/dl (0-0.5); Calcium 8.9 mg/dl (8.6-10.3); Carbon Dioxide 33 mmol/L (21-32); Chloride 104 mmol/L (98-107); Creatinine Clr Calc Pharmacy 123.4 ml/min; Glucose 95 mg/dl (70-99(Fasting)); Potassium 4.2 mmol/L (3.5-5.1); Sodium 140 mmol/L (136-145)
[2024-11-09 06:39] LABS: Troponin I High Sensitivity < 2.3 pg/ml (0-14)
[2024-11-09 07:27] LABS: ALC (manual) 4.17 K/uL (1.2-3.4); ANC (manual) 1.81 K/uL (1.4-6.5); Eosinophils # (manual) 0.12 K/uL (0-0.50); Eosinophils % (manual) 2 %; Lymphocytes # (manual) 3.36 K/uL (1.2-3.4); Lymphocytes % (manual) 54 %; Monocytes # (manual) 0.12 K/uL (0.11-0.59); Monocytes % (manual) 2 %; Neutrophils # (manual) 1.81 K/uL (1.40-6.50); Neutrophils % (manual) 29 %; Reactive Lymphocytes # (manual) 0.81 K/uL; Reactive Lymphocytes % (manual) 13 %
[2024-11-09] MEDS: PANTOprazole 40 MG TAB PO SCH (09:06)
[2024-11-09] MEDS: ACETAMINOPHEN 325 MG TAB PO PRN (09:09)
[2024-11-09] MEDS: METOPROLOL SUCC 25MG EXT REL TAB PO SCH (09:09)
--- NOTE | 2024-11-09 10:34 | Cardiology Consultation ---
Date of Consultation November 09, 2024 Assessment & Plan (1) Chest pain: (2) Paroxysmal atrial fibrillation: (3) S/P ablation of atrial flutter: (4) Mitral valve prolapse: Plan Atypical chest pain - EKG without acute change - High-sensitivity troponin negative x 3 - TTE with preserved LV systolic function, without regional wall motion abnormalities - Benign telemetry - Chest x-ray without acute cardiopulmonary findings - Further cardiac testing difficult to discern. Patient feels she is unable to ambulate adequately for exercise stress testing due to recent shoulder surgery. Dobutamine should be avoided due to atrial arrhythmia history. Lexiscan nuclear stress testing should be avoided due to seizure disorder. Will discuss further with Dr. Candelaria, Lilian outpatient Cardiac CT versus DORCAS when able from an orthopedic standpoint. Recent viral gastroenteritis, underlying GERD, history of peptic ulcer disease - Agree with addition of pantoprazole 40 mg/day Recent episode of asymptomatic paroxysmal atrial fibrillation following viral gastroenteritis - Continue metoprolol succinate. - Continue Eliquis anticoagulation History of symptomatic atrial flutter status post ablation History of mitral valve prolapse, mild mitral regurgitation Supervising Physician Co-Signing Physician Notes Patient was seen and personally examined, chart, medications, telemetry reviewed. Full assessment and plan as outlined by advanced provider as above. Care and management discussed personally and endorsed 64-year-old female with prior paroxysmal atrial fibrillation flutter recently presenting in the setting of acute viral gastroenteritis with paroxysmal atrial fibrillation with spontaneous conversion to sinus rhythm. Anticoagulation and beta-esau initiated. Presents now with atypical chest pain nausea. No signs of myocardial ischemia by EKG or enzyme criteria. No further arrhythmias on telemetry Echocardiogram with preserved wall motion and ejection fraction, no significant valvular disease Initial assessment not suggestive of acute coronary syndrome Relative bradycardia in hospital Plan as outlined above: Will reduce metoprolol succinate to 12.5 mg/day Ambulate in hospital if feeling well may be discharged for outpatient ischemic evaluation with cardiac coronary CT given relative contraindications to alternative imaging. History of Present Illness Reason for Consultation: Chest pain Requesting Physician: Dr. Payan Attending Physician: Dr. Dorothea Ferrer MD History of Present Illness Keira Cabello is a very pleasant 64-year-old female who presented to the [facility] ER on November 08, 2024 with complaints of chest discomfort. The patient was in her usual state of health until last week when she became sick with what she describes as a stomach bug after her son was sick with the same thing. She describes nausea, emesis x 1, and diarrhea. She notes having never been that sick with a stomach bug before in her life. Thankfully, on Thursday and Thursday she began to feel better and debated on whether or not to go to [facility]. She notes staying home and observing on her Fitbit that her heart rate dropped to 40 bpm. Due to the abnormal heart rate on her Fitbit her son drove her to the ER where she was seen by Dr. Blanca. She describes going in and out of atrial fibrillation in the ER. After 6 hours she was discharged from the ER and advised to start metoprolol succinate 25 mg/day as well as Eliquis anticoagulation 5 mg twice per day. She describes working on Thursday and feeling off. She notes going for a walk and experiencing 2 quick sharp jabs of discomfort across the chest lasting a second or 2. Later that evening, 1 finishing up at work, she experienced some tightness in the chest. After returning home, due to recurrence of tightness she called 911 was transported back to the ER via ambulance. EKG on presentation was without acute change, revealing sinus rhythm at 71 bpm with occasional premature ventricular complexes, left atrial enlargement, incomplete right bundle branch block, nonspecific STT wave abnormality. High-sensitivity troponin negative in the ER on November 06, 2024 and negative x 3 during this admission (2.6 -> 3.1 -> less than 2.3 pg/mL). Resting echocardiography this morning revealed normal left ventricular systolic function without regional wall motion abnormalities. Mild concentric LVH was noted along with mild mitral and tricuspid regurgitation. Chest x-ray without acute cardiopulmonary abnormality. Inpatient telemetry monitoring personally reviewed, revealing sinus rhythm in the 60s with occasional atrial ectopy. No atrial fibrillation. Patient notes having had the chest discomfort in the past, attributed to reflux. She also describes having a remote history of stomach ulcers, peptic ulcer disease. Cardiac history includes symptomatic atrial flutter initially observed in August 2018, ultimately undergoing electrophysiology study with tricuspid isthmus ablation performed and mitral valve prolapse with mild mitral regurgitation. Patient denies history of CAD, [place], CHF, rheumatic fever, or scarlet fever. Additional Past Medical and Surgical History: Epilepsy Left shoulder replacement in July 2024, actively participating in physical therapy Lumbago Discharge Kidney stones Arthroscopic knee surgery Tonsillectomy Rotator cuff surgery Family History: Mother passed with Alzheimer's. Father passed with COPD. 1 brother and 1 sister are without cardiac issues. Maternal grandfather had a pacemaker. Social History: Casual smoker in college, nothing since. Social alcohol only. Works at [employer]. . One son, with significant anxiety, lives at home. Allergies Allergy/AdvReac Type Severity Reaction Status Date / Time oxycodone Allergy Intermediate HAD Verified 11/08/24 20:52 "WITHDRAWL" WHEN STOPPED pseudoephedrine AdvReac Severe HYPERVENTIL Verified 11/08/24 20:52 ATE triprolidine AdvReac Severe HYPERVENTIL Verified 11/08/24 20:52 ATE albuterol AdvReac Intermediate JITTER, Verified 11/08/24 20:52 RAPID HEART RATE levofloxacin AdvReac Intermediate SWELLING, Verified 11/08/24 20:52 JOINT PAIN morphine AdvReac Intermediate SEE NOTES Verified 11/08/24 20:52 adhesive AdvReac Mild Redness of Verified 11/08/24 20:52 Skin - Bandaids adhesive tape AdvReac Mild Redness of Verified 11/08/24 20:52 Skin Home Medications Medication Instructions Recorded Confirmed Type apixaban 5 mg tablet (Eliquis) 5 mg PO BID #60 tabs 11/06/24 11/08/24 Rx divalproex 500 mg tablet,delayed 500 mg PO TID 11/06/24 11/08/24 History release metoprolol succinate 25 mg 25 mg PO DAILY #30 tabs 11/06/24 11/08/24 Rx tablet,extended release 24 hr (Toprol XL) ondansetron 4 mg disintegrating 4 mg PO Q8H PRN nausea and 11/06/24 11/08/24 Rx tablet vomiting #30 tabs ascorbic acid 1,000 1 ea PO DIRECTED PRN Cold 11/08/24 11/08/24 History wz-ntozoctmqkqt-hcseugbe powder Symptoms effervescent pack (Emergen-C) omeprazole 20 mg capsule,delayed 20 mg PO DAILY 11/08/24 11/08/24 History release Patient History Medical History Sleep apnea unable to tolerate the device, has since dx lost over 80lbs History of COVID-19 (~02/2024) x3, most recent 02/2024>"feels like sometimes if she gets a cough, the cough is different than in the past and has throat tightness" History of diverticulitis last flare approx. 5 years ago Osteoarthritis Atrial flutter f/u dr. hudson, [facility]ology Asthma stable, rare use of rescue inh History of kidney stones no sx Acid reflux controlled, stable per pt History of seizures last seizure 2004 Surgical History History of esophagogastroduodenoscopy (EGD) Hx of tonsillectomy History of total right knee replacement Family history of reaction to anesthesia mother>nausea and slow to wake up History of total shoulder replacement right History of cardiac radiofrequency ablation 08/2018 [facility] History of arthroscopy of right knee X3 History of arthroscopy of right shoulder X3 History of arthroscopy of left shoulder History of colonoscopy History of ankle surgery left Family History Father Family history of bladder cancer Social History Smoking Status: Never smoker Second Hand Exposure: Yes (hx growing up); Do You Dip or Chew Tobacco: No; Hx Alcohol Use: No Hx Substance Use: No Preferred Language: Danish Communication Ability: Effective 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 NAD. HENT: Normocephalic. Atraumatic. Eyes: PER. Conjunctiva pink, sclera clear. Neck: No carotid bruits. No JVD. No HJR. Heart: RRR. No murmur. No rub. No gallop. PMI is nondisplaced. Lungs: Clear to auscultation. Abdomen: +BS. Soft. Nontender. No masses or organomegaly. Extremities: No clubbing, cyanosis, or edema. Limited neurological examination is without focal deficits. Pulses: Posterior tibial=2/4. Results & Data Vital Signs (Past 12 Hours) Vital Signs Temp Pulse Pulse Resp BP BP Pulse Ox 11/09/24 07: 36.5 C 61 20 113/74 95 11/09/24 07:00 52 L 11/09/24 02:40 62 11/09/24 02:12 36.5 C 62 20 152/81 H 95 11/09/24 01:30 52 L 16 102/52 L 97 11/09/24 00:54 67 17 112/54 L 91 11/09/24 00:33 57 L 16 104/53 L 91 11/09/24 00:00 66 21 115/57 L 92 11/08/24 23:47 68 11/08/24 23:33 69 23 116/55 L 96 11/08/24 23:30 65 18 116/55 L 98 O2 Del Method 11/09/24 07:25 Room Air 11/09/24 07:00 11/09/24 02:40 11/09/24 02:12 Room Air 11/09/24 01:30 11/09/24 00:54 11/09/24 00:33 11/09/24 00:00 11/08/24 23:47 11/08/24 23:33 11/08/24 23:30 Laboratory Results Cardiac Enzymes 11/08/24 11/08/24 11/09/24 Range/Units 19:48 23:08 05:51 AST 23 (13-39) U/L Troponin I High Sens 2.6 3.1 < 2.3 (0-14) pg/ml Coagulation 11/08/24 Range/Units 19:48 PT 11.6 (9.0-12.0) Seconds APTT 27 (21-31) Seconds CBC 11/08/24 11/09/24 Range/Units 19:48 05:51 WBC 6.73 6.23 (4.8-10.8) K/ul RBC 4.76 4.33 (4.20-5.40) M/uL Hgb 13.0 11.9 L (12.0-16.0) g/dl Hct 40.8 36.8 L (37.0-47.0) % Plt Count 195 172 (130-400) K/uL Neut # (Auto) 2.86 (1.40-6.50) K/uL Lymph # (Auto) 3.15 (1.20-3.40) K/uL [place] # (Auto) 0.60 H (0.11-0.59) K/uL Eos # (Auto) 0.08 (0.00-0.50) K/uL Baso # (Auto) 0.03 (0.00-0.20) K/uL Comprehensive Metabolic Panel 11/08/24 11/09/24 Range/Units 19:48 05:51 Sodium 138 140 (136-145) mmol/L Potassium 4.2 4.2 (3.5-5.1) mmol/L Chloride 102 104 (98-107) mmol/L Carbon Dioxide 31 33 H (21-32) mmol/L BUN 16 17 (6-23) mg/dl Creatinine 0.73 0.72 (0.6-1.2) mg/dl Glucose 94 95 (70-99(Fasting)) mg/dl Calcium 9.5 8.9 (8.6-10.3) mg/dl AST 23 (13-39) U/L ALT 18 (7-52) U/L Alkaline Phosphatase 70 (34-104) U/L Total Protein 6.6 (6.0-8.3) gm/dl Albumin 4.1 (3.4-5.0) gm/dl Intake and Output 11/08/24 11/09/24 11/09/24 22:59 06:59 14:59 Intake Total 240 / 240 Balance 240 / 240 Intake: Oral 240 / 240 Other: # Unmeasured Voids 1 Weight 132.8 kg 131.6 kg Weight Measurement Method Built in [facility] Standing Scale
[2024-11-09 11:12] LABS: Thyroid Stimulating Hormone 4.997 uIu/ml (0.300-4.500)
[2024-11-09 11:20] VITALS: BP 109/63; PULSE 54; TEMP 97.3; O2SAT 97
[2024-11-09 11:47] LABS: T4 Free Thyroxine 1.01 ng/dl (0.61-1.60)
--- NOTE | 2024-11-09 14:16 | Discharge Summary ---
Discharge Summary Date of Service November 09, 2024 Principal Dx & Hospital Course #1 = Principal Diagnosis (1) Chest pain: (2) Paroxysmal atrial fibrillation: (3) Paroxysmal atrial flutter: (4) History of seizures: (5) Acid reflux: Randy Crockett is a 64 year old female with PMH significant for atrial flutter s/p ablation in 2019, paroxysmal atrial fibrillation, history of seizures, and GERD. She presented to the ED yesterday after experiencing two episodes of chest pain. The first one occurred while she was walking, only lasted a few seconds, and self resolved. The second episode occurred where she felt chest tightness for a pproximately 20 minutes, and self resolved. Upon arrival to the ED, she was hypertensive but otherwise VSS. Labs were obtained including a CBC and CMP that were unremarkable and negative troponins. EKG and CXR were without acute findings and echocardiogram demonstrated preserved LV systolic function and no regional wall motion abnormalities. She was placed on cardiac telemetry which demonstrated NSR. Cardiology was consulted for further management of atypical chest pain and they are recommending outpatient follow up including ischemic evaluation with cardiac coronary CT given contraindications to other imaging. 1. Chest pain No episodes of chest pain while in the hospital. Follow up arranged with Cardiology for further evaluation and management. 2. Paroxysmal atrial fibrillation Chronic, stable. Continue eliquis. Metoprolol dose reduced from 25mg to 12.5mg daily due to sinus bradycardia in the 50s while hospitalized. 3. Paroxysmal atrial flutter Chronic, stable. S/p ablation in 2019. 4. History of seizures Chronic, stable. Continue divalproex. 5. Acid reflux Chronic, stable. Continue omeprazole. Notes For Next Care Provider Ensure follow up with Cardiology for ischemic evaluation with cardiac coronary CT Medication Changes From Visit Metoprolol dose was decreased from 25mg daily to 12.5mg daily this hospitalization due to HRs in the 50s. Admission HPI Per Admitting Provider Patient is 64-year-old female with PMH GERD, history of epilepsy, paroxysmal atrial flutter s/p ablation in 2019, presented to ER with complaint of chest pain today. Per review of outpatient note, patient seen at [facility] ER on 11/06/2024 for N/V/D and was found to be in rapid atrial fibrillation and patient given bolus Cardizem. Prior to Cardizem drip being started patient converted to sinus rhythm. Patient was started on metoprolol succinate 25 mg and started on Eliquis. Patient states overall improved GI symptoms with no further vomiting or diarrhea. Still some slight nausea and has decreased appetite. Went back to work today. States around 4pm today was walking when she had episode of chest pain described as sharp that lasted few seconds and self resolved. Denies noticing any palpitations, dizziness, diaphoresis. Around 6pm tonight walking when had anterior chest tightness that lasted approximately 20 minutes and self resolved. Denies overt SOB but states intermittent episodes of feeling like needs to take a deep breath. Has not noticed palpitations even when she was in rapid afib/aflutter in past. Patient reporting some generalized headache. She feels this is secondary to not eating much today. Denies history known CAD. Denies hematemesis, melena, hematochezia, dizziness, syncope, vision changes, neck pain, cough, sore throat, abdominal pain, paresthesias, weakness, extremity weakness, extremity edema, rashes, urinary symptoms. Admission Exam Per Admitting Provider General: no distress, overweight female Head: normocephalic, atraumatic Eyes: conjunctiva non-injected, anicteric ENT: normal inspection external ears, nose, mucous membranes moist Neck: supple, trachea midline Lungs: clear, no respiratory distress, no wheezing/rhonchi/rales CV: RRR, no murmur, trace pretibial edema Abd: normal BS, soft, non-tender Ext: no cyanosis, no calf tenderness Neuro: A&O x 3, no focal deficits noted, normal affect Skin: warm, dry Discharge Exam VITALS: Reviewed and VSS. GEN: Healthy appearing, well-developed, NAD. PSYCH: Good Judgment. AOx3. Normal memory, mood, and affect. CV: RRR, no m/r/g. LUNGS: CTAB, no w/r/c. ABD: Soft, NT/ND, NBS, no masses or organomegaly. SKIN: Warm, well perfused. No skin rashes or abnormal lesions. MSK: No deformities, Normal gait. EXT: No clubbing, cyanosis, or edema. NEURO: Ambulating with no limitations. Normal muscle strength and tone. No focal deficits. Updated Medication List Medication Instructions Recorded Confirmed Type apixaban 5 mg tablet (Eliquis) 5 mg PO BID #60 tabs 11/06/24 11/08/24 Rx divalproex 500 mg tablet,delayed 500 mg PO TID 11/06/24 11/08/24 History release ondansetron 4 mg disintegrating 4 mg PO Q8H PRN nausea and 11/06/24 11/08/24 Rx tablet vomiting #30 tabs ascorbic acid 1,000 1 ea PO DIRECTED PRN Cold 11/08/24 11/08/24 History [id number] powder Symptoms effervescent pack (Emergen-C) omeprazole 20 mg capsule,delayed 20 mg PO DAILY 11/08/24 11/08/24 History release metoprolol succinate 25 mg 12.5 mg (1/2 x 25 mg) PO DAILY #30 11/09/24 11/08/24 Rx tablet,extended release 24 hr tabs (Toprol XL) Hospital Stay Data Consultations 11/08/24 20:52 ED Decision to Admit Stat 11/09/24 01:10 Consult Cardiology Routine 11/09/24 02:10 Consult Cardiology Routine Diagnostic Imagining Performed Chest X-Ray 11/08/24 19:45 Exam(s): XR CXR 1 VIEW EXAM: XR Chest, 1 View CLINICAL HISTORY: Reason for exam: Chest pain, nonspecific. TECHNIQUE: Frontal view of the chest. COMPARISON: 11/06/2024 FINDINGS: Lungs: No consolidation. No overt edema. Pleural space: No pleural effusion. No pneumothorax. Heart: Unremarkable. No cardiomegaly. IMPRESSION: No acute cardiopulmonary abnormality. Electronically signed by: Jeff Rhodes MD 11/08/24 22:[address] 11/08/24 21:52 Exam(s): CT HEAD Without Contrast EXAM: CT Head Without Intravenous Contrast CLINICAL HISTORY: Reason for exam: montes, noac. TECHNIQUE: Axial computed tomography images of the head/brain without intravenous contrast. CTDI is 49.19 mGy and DLP is 800.63 mGy-cm. Automated exposure control was utilized for the study. A dose lowering technique was utilized adhering to the principles of ALARA. COMPARISON: No relevant prior studies available. FINDINGS: Brain: Unremarkable. No hemorrhage. No significant white matter disease. No edema. Ventricles: Unremarkable. No ventriculomegaly. Bones/joints: Unremarkable. No acute fracture. Soft tissues: Unremarkable. Sinuses: Unremarkable as visualized. No acute sinusitis. Mastoid air cells: Unremarkable as visualized. No mastoid effusion. IMPRESSION: No evidence of acute intracranial pathology. Electronically signed by: Arabella Byrne MD 11/09/24 01:03 AM Pending Results Patient Have Any Pending Studies at Discharge: No Discharge Instructions Given to Patient (Per Discharging Provider) You were admitted to the hospital for chest pain that you experienced at home yesterday. You underwent work up for this chest pain including an EKG, echocardiogram, chest x-ray, and lab work which were all reassuring. You were placed on nuclear monitoring technician which showed no abnormal heart rhythms while you were in the hospital. We consulted cardiology who are recommending outpatient follow up with them including a cardiac coronary CT. MEDICATION CHANGES: Cardiology recommended lowering your metoprolol dose from 25mg daily to 12.5mg daily due to lower heart rates while in the hospital. Otherwise, you may continue all of your home medications. We would encourage you to take OTC prilos ec for acid reflux. SUMMARY OF TEST RESULTS: See above PENDING TEST RESULTS: None RECOMMENDATIONS FOR FOLLOW-UP: We recommend following up with your PCP on Thursday as scheduled and following up with Cardiology as scheduled. Advise limiting strenuous activity until you follow up with Cardiology. OTHER INSTRUCTIONS: We recommend continuing to monitor for chest pain and notify your PCP if you experience any new or worsening chest pain. Please return to ED if you experience chest pain that is not resolving or associated with shortness of breath. Seek medical attention if you have: * temperature above 101 * chest pain or trouble breathing * abdominal pain, nausea, vomiting * diarrhea, dark stools or bloody stools * any unanswered questions or concerns Call 911 if symptoms are severe. Please take good care of yourself. It has been a pleasure taking care of you. If you have any questions regarding your recent hospitalization please contact [facility] and request [facility]ane[facility] @ [phone]. Total Time Total Time Spent Total Time Spent (In Minutes): I spent a total of 35 minutes coordinating, documenting and providing care for this patient excluding time spent in the performance of separately billed services or time spent by another provider/QHP. Supervising Physician Co-Signing Physician Notes Patient seen and examined Agree with findings and plans as detailed by Beatriz LOPEZ
--- NOTE | 2024-11-10 06:05 | Electrocardiogram Report ---
Test Reason : Blood Pressure : */* mmHG Vent. Rate : 71 BPM Atrial Rate : 71 BPM P-R Int : 156 ms QRS Dur : 96 ms QT Int : 410 ms P-R-T Axes : 44 91 27 degrees QTcB Int : 445 ms Sinus rhythm with occasional Premature ventricular complexes Possible Left atrial enlargement Rightward axis Incomplete right bundle branch block Nonspecific ST and T wave abnormality Abnormal ECG When compared with ECG of 06-Nov-2024 15:30, Premature ventricular complexes are now Present Incomplete right bundle branch block is now Present Confirmed by John Deras ([id number]) on 11/10/2024 6:05:02 AM Referred By: REFERRED SELF Confirmed By: John Deras
[2024-11-10] MEDS ORDERED: METOPROLOL SUCC 25MG EXT REL TAB PO SCH (09:00)
== END 2024-11-09 14:14 | disposition home or self-care (01) ==
LOC: ED 19:37 → 2S 19:37